=== PATIENT | male | born 1945 | race Caucasian/White ===

== ENCOUNTER 2020-03-12 10:31 | Outpatient (CLI) | payer OTHER, MEDICARE ==
[2020-03-12 10:41] LABS: BASOPHILS % (AUTO) 0.5 %; EOSINOPHILS # (AUTO) 0.2 10^3/uL (0.0-0.7); HGB - HEMOGLOBIN 14.4 g/dL (14.0-18.0); LYMPHOCYTES # (AUTO) 1.2 10^3/uL (1.5-3.5); LYMPHOCYTES % (AUTO) 15.7 %; MEAN CORPUSCULAR HGB CONC 32.9 g/dL (32.0-36.0); MEAN CORPUSCULAR VOLUME 85.2 fL (80.0-94.0); MEAN PLATELET VOLUME 8.8 fL (7.4-11.4); MONOCYTES # (AUTO) 0.7 10^3/uL (0.0-1.0); MONOCYTES % (AUTO) 8.5 %; NEUTROPHILS # (AUTO) 5.6 10^3/uL (1.5-6.6); NEUTROPHILS % (AUTO) 72.9 %; PLT - PLATELET COUNT 297 10^3/uL (130-450); RED BLOOD COUNT 5.14 10^6/uL (4.70-6.10); RED CELL DISTRIBUTION WIDTH 14.8 % (12.0-15.0); WHITE BLOOD COUNT 7.6 x10^3/uL (4.8-10.8)
== END 2020-03-12 10:32 | disposition home or self-care (01) ==
LOC: LAB 10:31
PROVIDERS: ATTEND Allergy & Immunology
DX: J45.50 Severe persistent asthma, uncomplicated (principal)
CPT/HCPCS: 36415; 82785; 85025

== ENCOUNTER 2020-03-19 13:12 | Outpatient (CLI) | payer OTHER, MEDICARE | END 2020-03-19 13:13 | disposition home or self-care (01) | LOC: RT 13:12 | PROVIDERS: ATTEND Allergy & Immunology | DX: J45.50 Severe persistent asthma, uncomplicated (principal) | CPT/HCPCS: 94060 ==

== ENCOUNTER 2021-05-29 02:31 | Outpatient (CLI) | payer MEDICARE, OTHER | END 2021-05-29 02:32 | disposition EMS.NT | LOC: EMS 02:31 | DX: R06.00 Dyspnea, unspecified (principal); F41.9 Anxiety disorder, unspecified ==

== ENCOUNTER 2021-06-24 08:00 | Outpatient (CLI) | payer MEDICARE, OTHER ==
[2021-06-24 16:14] LABS: BILIRUBIN,URINE NEGATIVE (NEGATIVE); GLUCOSE, URINE (UA) NEGATIVE (NEGATIVE); KETONES,URINE (UA) NEGATIVE (NEGATIVE); LEUKOCYTE ESTERASE, URINE NEGATIVE (NEGATIVE); NITRITE,URINE NEGATIVE (NEGATIVE); OCCULT BLOOD,URINE NEGATIVE (NEGATIVE); PH,URINE 5.5 PH (5.0-7.5); PROTEIN,URINE NEGATIVE (NEGATIVE); UROBILINOGEN,URINE 0.2 (NORMAL) E.U./dL (NORMAL)
[2021-06-24 16:17] LABS: CLARITY,URINE CLEAR (CLEAR)
== END 2021-06-24 23:59 ==
LOC: LAB.R 08:00
PROVIDERS: ATTEND Internal Medicine
DX: R30.0 Dysuria (principal); R10.9 Unspecified abdominal pain
CPT/HCPCS: 81001; 81003; 87086

== ENCOUNTER 2021-09-01 15:32 | Outpatient (CLI) | payer MEDICARE, OTHER ==
[2021-09-01 18:22] LABS: BASOPHILS # (AUTO) 0.1 10^3/uL (0.0-0.1); BASOPHILS % (AUTO) 0.6 %; EOSINOPHILS # (AUTO) 0.1 10^3/uL (0.0-0.7); EOSINOPHILS % (AUTO) 1.7 %; HCT - HEMATOCRIT 45.2 % (42.0-52.0); LYMPHOCYTES % (AUTO) 11.8 %; MEAN PLATELET VOLUME 10.5 fL (7.4-11.4); MONOCYTES # (AUTO) 0.6 10^3/uL (0.0-1.0); MONOCYTES % (AUTO) 6.7 %; NEUTROPHILS # (AUTO) 6.5 10^3/uL (1.5-6.6); NEUTROPHILS % (AUTO) 78.8 %; PLT - PLATELET COUNT 265 10^3/uL (130-450); RED BLOOD COUNT 5.38 10^6/uL (4.70-6.10); RED CELL DISTRIBUTION WIDTH 16.9 % (12.0-15.0); WHITE BLOOD COUNT 8.2 x10^3/uL (4.8-10.8)
== END 2021-09-01 15:33 | disposition home or self-care (01) ==
LOC: LAB.R 15:32
PROVIDERS: ATTEND Internal Medicine
DX: M25.50 Pain in unspecified joint (principal)
CPT/HCPCS: 84550; 85025

== ENCOUNTER 2022-04-07 23:23 | Emergency (ER) | payer OTHER, MEDICARE ==
[2022-04-08 00:10] LABS: BASOPHILS % (AUTO) 0.3 %; EOSINOPHILS # (AUTO) 0.1 10^3/uL (0.0-0.7); EOSINOPHILS % (AUTO) 0.9 %; HCT - HEMATOCRIT 38.4 % (42.0-52.0); LYMPHOCYTES # (AUTO) 1.6 10^3/uL (1.5-3.5); MEAN CORPUSCULAR HEMOGLOBIN 25.3 pg (27.0-31.0); MEAN CORPUSCULAR HGB CONC 31.3 g/dL (32.0-36.0); MEAN CORPUSCULAR VOLUME 80.8 fL (80.0-94.0); MEAN PLATELET VOLUME 9.1 fL (7.4-11.4); MONOCYTES # (AUTO) 0.7 10^3/uL (0.0-1.0); MONOCYTES % (AUTO) 10.7 %; NEUTROPHILS # (AUTO) 4.4 10^3/uL (1.5-6.6); NEUTROPHILS % (AUTO) 63.7 %; PLT - PLATELET COUNT 278 10^3/uL (130-450); RED BLOOD COUNT 4.75 10^6/uL (4.70-6.10); RED CELL DISTRIBUTION WIDTH 15.4 % (12.0-15.0); WHITE BLOOD COUNT 6.8 x10^3/uL (4.8-10.8)
[2022-04-08] MEDS: IPRATROPIUM/ALBUTEROL 3 ML NEB INH STA (00:10)
[2022-04-08 00:19] LABS: CALCIUM 9.4 mg/dL (8.5-10.3); POTASSIUM 4.5 mmol/L (3.5-5.0)
[2022-04-08] MEDS: predniSONE 20 MG TABLET PO STA (00:23)
--- NOTE | 2022-04-08 00:37 | XRAY Report ---
PROCEDURE: Chest 1 View X-Ray INDICATIONS: cough/SOA TECHNIQUE: One view of the chest was acquired. COMPARISON: None. FINDINGS: Surgical changes and devices: None. Lungs and pleura: No pleural effusions or pneumothorax. Lungs are clear. Mediastinum: Mediastinal contours appear normal. Heart size is normal. Bones and chest wall: No suspicious bony lesions. Overlying soft tissues appear unremarkable. IMPRESSION: 1. No acute cardiopulmonary disease. Reviewed by: Martín Brantley MD on 04/08/2022 12:45 AM [facility] Approved by: Martín Brantley MD on 04/08/2022 12:45 AM [facility] Station ID: [id number]
--- NOTE | 2022-04-08 00:58 | ED Physician Documentation ---
PD HPI DYSPNEA - Stated complaint Stated Complaint: SOA - Chief complaint Chief Complaint: Resp - History obtained from History obtained from: Patient - Additional information Additional information: Patient is a 76-year-old male with a history of asthma presenting for evaluation of worsening shortness of breath. Patient reports having a nonproductive cough and exacerbation of his asthma for the past 2 weeks.He has been using his albuterol inhaler regularly but is out of the nebulized albuterol. His doctor had sent a prednisone prescription a few months ago to the pharmacy which she has been taking. He reports it was a 5-day course of 2 pills and 5-day course of 1 pill.He is on day 6 of this. He is unsure of the dose.He denies known fevers. He denies chest pain. No leg pain or swelling. Review of Systems Constitutional: denies: Fever Nose: reports: Congestion Cardiac: denies: Chest pain / pressure Respiratory: reports: Dyspnea, Cough GI: denies: Abdominal Pain : denies: Dysuria Musculoskeletal: denies: Back pain Neurologic: denies: Headache PD PAST MEDICAL HISTORY - Past Medical History Past Medical History: Yes Cardiovascular: Hypertension, High cholesterol Respiratory: Asthma Endocrine/Autoimmune: Type 2 diabetes GI: GERD, Ulcers, Diverticulitis, Other Other Past Medical History: Esophageal spasm - Past Surgical History Past Surgical History: Yes General: Cholecystectomy, Colonoscopy - Present Medications Home Medications: Ambulatory Orders Medication Instructions Recorded Confirmed Albuterol Sulfate [Proair 2 puffs IH Q4HR PRN 04/07/22 04/07/22 Digihaler] Atorvastatin Calcium 40 mg PO DAILY 04/07/22 04/07/22 Beclomethasone Dipropionate [Qvar 2 puffs IH BID 04/07/22 04/07/22 Redihaler (80 mcg)] Enalapril Maleate [Vasotec] 20 mg PO BID 04/07/22 04/07/22 Lansoprazole [Prevacid] 30 mg PO DAILY 04/07/22 04/07/22 Metformin HCl [Metformin ER 500 mg PO DAILY 04/07/22 04/07/22 Osmotic] Metoprolol Succinate [Toprol Xl] 25 mg PO BID 04/07/22 04/07/22 Tamsulosin HCl [Flomax] 1 cap PO DAILY 04/07/22 04/07/22 Triamterene/Hydrochlorothiazid 1 cap PO DAILY 04/07/22 04/07/22 [Triamterene-Hctz 37.5-25 mg Cp] Albuterol 2.5 mg INH Q4H PRN #30 ml 04/08/22 predniSONE [Deltasone] 20 mg PO DAILY 04/08/22 04/08/22 predniSONE [Deltasone] 20 mg PO [id number] #21 tab 04/08/22 - Allergies Allergies/Adverse Reactions: Allergies Allergy/AdvReac Type Severity Reaction Status Date / Time No Known Drug Allergies Allergy Verified 04/07/22 23:41 - Social History Does the pt smoke?: No Smoking Status: Never smoker Does the pt drink ETOH?: No Does the pt have substance abuse?: No - Immunizations Immunizations are current?: Yes - POLST Patient has POLST: No PD ED PE NORMAL - General General: Alert and oriented X 3, No acute distress, Well developed/nourished - HEENT HEENT: Atraumatic, Moist mucous membranes - Neck Neck: Supple, no meningeal sign - Cardiac Cardiac: RRR, Strong equal pulses - Respiratory Respiratory: No respiratory distress, Other (Diffuse wheezing, no rhonchi or rales) - Abdomen Abdomen: Soft, Non tender - Derm Derm: Warm and dry - Extremities Extremities: No edema, No calf tenderness / cord - Neuro Neuro: Normal speech Results - Vitals Vitals: Vital Signs - 24 hr 04/07/22 04/07/22 04/08/22 23:25 23:56 00:10 Temperature 36.7 C Heart Rate 84 94 94 Respiratory 25 H 24 18 Rate Blood Pressure 175/100 H 175/100 H O2 Saturation 97 96 04/08/22 01:02 Temperature 37.3 C Heart Rate 94 Respiratory 18 Rate Blood Pressure 133/76 H O2 Saturation 98 Oxygen O2 Source Room air - EKG (time done) 1210 Rate: Rate (enter#) (94) Rhythm: NSR Ischemia: No: ST elevation c/w ischemia, ST depression Compare to prior EKG: Old EKG unavailable - Labs Labs: Laboratory Tests 04/08/22 04/08/22 04/08/22 00:03 00:03 00:03 WBC 6.8 RBC 4.75 Hgb 12.0 L Hct 38.4 L MCV 80.8 MCH 25.3 L MCHC 31.3 L RDW 15.4 H Plt Count 278 MPV 9.1 Neut # (Auto) 4.4 Lymph # (Auto) 1.6 [place] # (Auto) 0.7 Eos # (Auto) 0.1 Baso # (Auto) 0.0 Absolute Nucleated RBC 0.00 Nucleated RBC % 0.0 Sodium 139 Potassium 4.5 Chloride 103 Carbon Dioxide 24 Anion Gap 12.0 BUN 24 H Creatinine 1.0 Estimated GFR (MDRD) 72 L Glucose 139 H Calcium 9.4 B-Natriuretic Peptide 44 Nasal Adenovirus (PCR) Nasal B. parapertussis DNA (PCR) Nasal Coronavir 229E PCR Nasal Coronavir HKU1 PCR Nasal Coronavir NL63 PCR Nasal Coronavir OC43 PCR Nasal Enterovir/Rhinovir PCR Nasal Influenza A H3 PCR Nasal Influenza B PCR Nasal Parainfluen 1 PCR Nasal Parainfluen 2 PCR Nasal Parainfluen 3 PCR Nasal Parainfluen 4 PCR Nasal RSV (PCR) Nasal B.pertussis DNA PCR Nasal C.pneumoniae (PCR) Thaddeus Human Metapneumo PCR Nasal M.pneumoniae (PCR) Nasal SARS-CoV-2 (PCR) 04/08/22 00:04 WBC RBC Hgb Hct MCV MCH MCHC RDW Plt Count MPV Neut # (Auto) Lymph # (Auto) [place] # (Auto) Eos # (Auto) Baso # (Auto) Absolute Nucleated RBC Nucleated RBC % Sodium Potassium Chloride Carbon Dioxide Anion Gap BUN Creatinine Estimated GFR (MDRD) Glucose Calcium B-Natriuretic Peptide Nasal Adenovirus (PCR) NOT DETECTED Nasal B. parapertussis DNA (PCR) NOT DETECTED Nasal Coronavir 229E PCR NOT DETECTED Nasal Coronavir HKU1 PCR NOT DETECTED Nasal Coronavir NL63 PCR NOT DETECTED Nasal Coronavir OC43 PCR NOT DETECTED Nasal Enterovir/Rhinovir PCR NOT DETECTED Nasal Influenza A H3 PCR DETECTED A Nasal Influenza B PCR NOT DETECTED Nasal Parainfluen 1 PCR NOT DETECTED Nasal Parainfluen 2 PCR NOT DETECTED Nasal Parainfluen 3 PCR NOT DETECTED Nasal Parainfluen 4 PCR NOT DETECTED Nasal RSV (PCR) NOT DETECTED Nasal B.pertussis DNA PCR NOT DETECTED Nasal C.pneumoniae (PCR) NOT DETECTED Thaddeus Human Metapneumo PCR NOT DETECTED Nasal M.pneumoniae (PCR) NOT DETECTED Nasal SARS-CoV-2 (PCR) NOT DETECTED PD MEDICAL DECISION MAKING - ED course Complexity details: reviewed results, re-evaluated patient, d/w patient, d/w family ED course: Patient with shortness of breath and recent cough and congestion.His vital signs appear stable. He is wheezing on exam. EKG obtained given age.No chest pain is to suggest ACS. No exam findings to suggest fluid overload. His labs were reviewed. His chest x-ray appears clear. A respiratory panel is pending at time of discharge.He feels much better after 2 breathing treatments. I have started him back on a higher dose of prednisone And sent a new prescription to his pharmacy. Have also refilled his albuterol for the nebulizer. He is counseled regarding continued supportive care as well as concerning symptoms to return for.After discharge it is noted that he is influenza A positive. Given the duration of his symptoms I do not believe he is a candidate for Tamiflu. 1256 - Feeling much better after 2 nebs. Lung sounds are clear. is at the bedside. Reviewed results. Departure - Departure Disposition: Home, Self Care Clinical Impression: Asthma exacerbation Qualifiers: Asthma severity: moderate Asthma persistence: unspecified Qualified Code(s): J45.901 - Unspecified asthma with (acute) exacerbation Condition: Good Instructions: ED Bronchitis Asthmatic Prescriptions: Albuterol 2.5 mg INH Q4H PRN #30 ml PRN Reason: Wheezing predniSONE [Deltasone] 20 mg PO [id number] #21 tab Comments: Your chest x-ray does not show signs of pneumonia or fluid in your lungs. Your labs are reassuring. I have sent prescriptions for prednisone and nebulized albuterol to [facility] in [place].Please use the albuterol (in the nebulizer or inhaler) every 4 hours as needed for wheezing or shortness of breath. Please return to the ER with any worsening symptoms. Otherwise please contact your doctor for close follow-up. Your respiratory panel is pending. This will check for COVID, influenza, RSV and a number of other common cold viruses. We will notify you if it is positive for COVID. Otherwise you can check the patient portal for your results. Please continue with acetaminophen or ibuprofen as needed for fevers and body aches, plenty of fluids/hydration and rest. Return to the ER with any worsening symptoms such as difficulty breathing or vomiting. Discharge Date/Time: 04/08/22 01:08
[2022-04-08 01:02] LABS: B. PARAPERTUSSIS- RESP PCR PAN NOT DETECTED; B. PERTUSSIS- RESP PCR PANEL NOT DETECTED; C. PNEUMONIAE- RESP PCR PANEL NOT DETECTED; CORONAVIRUS 229E-RESP PCR NOT DETECTED; CORONAVIRUS HKU1-RESP PCR NOT DETECTED; CORONAVIRUS NL63-RESP PCR NOT DETECTED; CORONAVIRUS OC43-RESP PCR NOT DETECTED; HUMAN METAPNEUMOVIRUS NOT DETECTED; INFLUENZA A H3- RESP PCR PANEL DETECTED; INFLUENZA B - RESP PCR PANEL NOT DETECTED; M. PNEUMONIAE- RESP PCR PANEL NOT DETECTED; PARAINFLUENZA VIRUS 1 NOT DETECTED; PARAINFLUENZA VIRUS 2 NOT DETECTED; PARAINFLUENZA VIRUS 3 NOT DETECTED; PARAINFLUENZA VIRUS 4 NOT DETECTED; RHINOVIRUS/ENTEROVIRUS NOT DETECTED; RSV- RESP PCR PANEL NOT DETECTED; SARS-CoV-2 -RESP PCR PANEL NOT DETECTED
[2022-04-08 01:03] VITALS: BP 133/76
== END 2022-04-08 01:08 | disposition home or self-care (01) ==
LOC: ED 23:23
DX: J45.901 Unspecified asthma with (acute) exacerbation (principal); E11.9 Type 2 diabetes mellitus without complications; Z79.84 Long term (current) use of oral hypoglycemic drugs; I10 Essential (primary) hypertension; Z20.822 Contact with and (suspected) exposure to COVID-19
CPT/HCPCS: 36415; 71045; 80048; 83880; 85025; 87633; 93005; 94640; 99283; 99284; J7512

== ENCOUNTER 2022-04-18 08:00 | Outpatient (CLI) | payer OTHER, MEDICARE ==
[2022-04-18 16:18] LABS: BASOPHILS % (AUTO) 0.4 %; EOSINOPHILS % (AUTO) 0.1 %; HCT - HEMATOCRIT 38.7 % (42.0-52.0); HGB - HEMOGLOBIN 12.2 g/dL (14.0-18.0); LYMPHOCYTES # (AUTO) 0.7 10^3/uL (1.5-3.5); LYMPHOCYTES % (AUTO) 7.5 %; MEAN CORPUSCULAR HEMOGLOBIN 25.5 pg (27.0-31.0); MEAN CORPUSCULAR HGB CONC 31.5 g/dL (32.0-36.0); MEAN CORPUSCULAR VOLUME 80.8 fL (80.0-94.0); MEAN PLATELET VOLUME 10.2 fL (7.4-11.4); MONOCYTES # (AUTO) 0.3 10^3/uL (0.0-1.0); MONOCYTES % (AUTO) 2.9 %; NEUTROPHILS # (AUTO) 8.6 10^3/uL (1.5-6.6); NEUTROPHILS % (AUTO) 88.7 %; PLT - PLATELET COUNT 319 10^3/uL (130-450); RED BLOOD COUNT 4.79 10^6/uL (4.70-6.10); RED CELL DISTRIBUTION WIDTH 15.9 % (12.0-15.0); WHITE BLOOD COUNT 9.7 x10^3/uL (4.8-10.8)
[2022-04-18 16:35] LABS: ALBUMIN 3.6 g/dL (3.2-5.5); ALBUMIN/GLOBULIN RATIO 1.1 (1.0-2.2); ALKALINE PHOSPHATASE 82 IU/L (42-121); ALT ALANINE AMINOTRANSFERASE 20 IU/L (10-60); AST ASPARTATE AMINOTRANSFERASE 23 IU/L (10-42); BILIRUBIN,TOTAL 1.6 mg/dL (0.2-1.0); BUN - BLOOD UREA NITROGEN 19 mg/dL (6-20); CALCIUM 9.5 mg/dL (8.5-10.3); CARBON DIOXIDE - CO2 25 mmol/L (21-32); CHLORIDE 100 mmol/L (101-111); CHOL/HDL RATIO 2.8 (<5.0); CHOLESTEROL 131 mg/dL; CK- CREATINE KINASE 80 IU/L (22-269); GFR - MDRD 72 (>89); GLUCOSE 205 mg/dL (70-100); HDL CHOLESTEROL 46 mg/dL; LDL CHOLESTEROL,CALCULATED 62 mg/dL; LDL/HDL RATIO 1.3 (<3.6); POTASSIUM 4.7 mmol/L (3.5-5.0); SODIUM 135 mmol/L (135-145); TRIGLYCERIDES 115 mg/dL; VLDL CHOLESTEROL 23 mg/dL
[2022-04-18 16:40] LABS: MICROALBUMIN,URINE 0.9 mg/dL (0-300.0)
[2022-04-18 17:01] LABS: THYROID STIMULATING HORMONE 1.71 uIU/mL (0.34-5.60)
[2022-04-18 19:05] LABS: ESTIMATED AVERAGE GLUCOSE 186 mg/dL (70-100); HEMOGLOBIN A1c% 8.1 % (4.27-6.07)
== END 2022-04-18 23:59 | disposition home or self-care (01) ==
LOC: LAB.R 08:00
PROVIDERS: ATTEND Internal Medicine
DX: Z00.00 Encounter for general adult medical examination without abnormal findings (principal); N40.0 Benign prostatic hyperplasia without lower urinary tract symptoms; E11.9 Type 2 diabetes mellitus without complications; M10.9 Gout, unspecified; E78.5 Hyperlipidemia, unspecified; I10 Essential (primary) hypertension; J45.909 Unspecified asthma, uncomplicated; R79.89 Other specified abnormal findings of blood chemistry; Z79.899 Other long term (current) drug therapy; R25.1 Tremor, unspecified; J06.9 Acute upper respiratory infection, unspecified
CPT/HCPCS: 36415; 80053; 80061; 82043; 82550; 82570; 82607; 83036; 83721; 84443; 85025

== ENCOUNTER 2023-10-24 04:05 | Outpatient (CLI) | payer OTHER | END 2023-10-24 23:59 | disposition critical access hospital (66) | LOC: EMS 04:05 | DX: R07.89 Other chest pain (principal); I10 Essential (primary) hypertension; R11.0 Nausea; R06.02 Shortness of breath | CPT/HCPCS: A0425; A0427 ==

== ENCOUNTER 2023-10-24 04:36 | Emergency (ER) | payer MEDICARE, OTHER ==
[2023-10-24 05:02] LABS: BASOPHILS # (AUTO) 0.1 10^3/uL (0.0-0.1); BASOPHILS % (AUTO) 0.9 %; EOSINOPHILS # (AUTO) 0.2 10^3/uL (0.0-0.7); EOSINOPHILS % (AUTO) 3.5 %; HCT - HEMATOCRIT 34.6 % (42.0-52.0); HGB - HEMOGLOBIN 10.8 g/dL (14.0-18.0); LYMPHOCYTES % (AUTO) 18.1 %; MEAN CORPUSCULAR HEMOGLOBIN 24.4 pg (27.0-31.0); MEAN CORPUSCULAR HGB CONC 31.2 g/dL (32.0-36.0); MEAN CORPUSCULAR VOLUME 78.1 fL (80.0-94.0); MEAN PLATELET VOLUME 9.2 fL (7.4-11.4); MONOCYTES # (AUTO) 0.6 10^3/uL (0.0-1.0); MONOCYTES % (AUTO) 10.3 %; NEUTROPHILS # (AUTO) 3.9 10^3/uL (1.5-6.6); PLT - PLATELET COUNT 259 10^3/uL (130-450); RED BLOOD COUNT 4.43 10^6/uL (4.70-6.10); RED CELL DISTRIBUTION WIDTH 17.2 % (12.0-15.0); WHITE BLOOD COUNT 5.7 x10^3/uL (4.8-10.8)
--- NOTE | 2023-10-24 05:02 | ED Physician Documentation ---
PD HPI CHEST PAIN - Stated complaint Stated Complaint: CHEST PX - Chief complaint Chief Complaint: Cardiac - History obtained from History obtained from: Patient - Additional information Additional information: HPI from patient. Patient complains of waking up at approximately 1 AM this morning due to shortness of breath which she says is consistent with "my asthma attack" (per patient). Patient says he frequently has asthma exacerbations. He does not use oxygen at home. He has both nebulizers and MDI; he did not use his neb tonight because he had just used his MDI and is under the impression that he should use one or the other but not both. Continues to have shortness of breath and wheezing. He subsequently developed pain across his anterior chest but predominantly left-sided. This is a new symptom for him. The pain is mild, and he rates it a 2 on a 1-10 scale. He says the pain is episodic; it has gone away and then reoccurred a few times since onset. He has not noticed any inciting, exacerbating, nor ameliorating factors. He denies fever. He has had a wet cough but nonproductive. Denies leg swelling. There is no pleuritic nor exertional component to his chest pain. PD PAST MEDICAL HISTORY - Past Medical History Cardiovascular: Hypertension, High cholesterol Respiratory: Asthma Endocrine/Autoimmune: Type 2 diabetes GI: GERD, Ulcers, Diverticulitis, Other - Past Surgical History Past Surgical History: Yes General: Cholecystectomy, Colonoscopy - Present Medications Home Medications: Ambulatory Orders Medication Instructions Recorded Confirmed Albuterol Sulfate [Proair 2 puffs IH Q4HR PRN 04/07/22 04/07/22 Digihaler] Atorvastatin Calcium 40 mg PO DAILY 04/07/22 04/07/22 Beclomethasone Dipropionate [Qvar 2 puffs IH BID 04/07/22 04/07/22 Redihaler (80 mcg)] Enalapril Maleate [Vasotec] 20 mg PO BID 04/07/22 04/07/22 Lansoprazole [Prevacid] 30 mg PO DAILY 04/07/22 04/07/22 Metformin HCl [Metformin ER 500 mg PO DAILY 04/07/22 04/07/22 Osmotic] Metoprolol Succinate [Toprol Xl] 25 mg PO BID 04/07/22 04/07/22 Tamsulosin HCl [Flomax] 1 cap PO DAILY 04/07/22 04/07/22 Triamterene/Hydrochlorothiazid 1 cap PO DAILY 04/07/22 04/07/22 [Triamterene-Hctz 37.5-25 mg Cp] Albuterol 2.5 mg INH Q4H PRN #30 ml 04/08/22 predniSONE [Deltasone] 20 mg PO DAILY 04/08/22 04/08/22 predniSONE [Deltasone] 20 mg PO [id number] #21 tab 04/08/22 predniSONE [Deltasone] 40 mg PO DAILY 4 Days #8 tablet 10/24/23 - Allergies Allergies/Adverse Reactions: Allergies Allergy/AdvReac Type Severity Reaction Status Date / Time No Known Drug Allergies Allergy Verified 10/24/23 04:58 - Social History Does the pt smoke?: No Smoking Status: Never smoker Does the pt drink ETOH?: No Does the pt have substance abuse?: No - Immunizations Immunizations are current?: Yes - POLST Patient has POLST: No PD ED PE NORMAL - Vitals Vital signs reviewed: Yes - General General: Alert and oriented X 3, No acute distress, Well developed/nourished - Neck Neck: Supple, no meningeal sign - Cardiac Cardiac: RRR - Respiratory Respiratory: No respiratory distress - Abdomen Abdomen: Soft, Non tender - Extremities Extremities: No edema PD ED PE EXPANDED - Cardiac Cardiac: Murmur Present (2/6 MARY greatest at left 2nd ICS) - Respiratory Respiratory: Wheezing (trace end-expiratory wheezing bilaterally, adequate air movement) Results - Vitals Vitals: Vital Signs - 24 hr 10/24/23 10/24/23 10/24/23 04:42 05:40 06:30 Temperature 36.9 C Heart Rate 61 62 74 Respiratory 18 16 16 Rate Blood Pressure 139/76 H 124/69 O2 Saturation 100 98 Oxygen O2 Source Room air - EKG (time done) No standard instances EKG releavant findings:: EKG personally interpreted by author of this note. Relevant findings are: Rate: Rate (enter#) (60) Rhythm: NSR [place]: Normal Intervals: Normal [place], LBBB (incomplete) QRS: Normal Ischemia: Normal ST segments Compare to prior EKG: Unchanged from prior EKG (no significant change vs 04/08/22) - Labs Labs: Laboratory Tests 10/24/23 10/24/23 10/24/23 04:55 04:55 05:25 WBC 5.7 RBC 4.43 L Hgb 10.8 L Hct 34.6 L MCV 78.1 L MCH 24.4 L MCHC 31.2 L RDW 17.2 H Plt Count 259 MPV 9.2 Neut # (Auto) 3.9 Lymph # (Auto) 1.0 L [place] # (Auto) 0.6 Eos # (Auto) 0.2 Baso # (Auto) 0.1 Absolute Nucleated RBC 0.00 Nucleated RBC % 0.0 Sodium 132 L Potassium 4.4 Chloride 99 L Carbon Dioxide 27 Anion Gap 6.0 BUN 16 Creatinine 0.9 Estimated GFR (MDRD) 81 L Glucose 115 H Calcium 9.5 Total Bilirubin 1.2 H AST 20 ALT 10 Alkaline Phosphatase 62 Troponin I High Sens 5.4 Total Protein 6.3 L Albumin 4.0 Globulin 2.3 Albumin/Globulin Ratio 1.7 Lipase 27 Nasal Adenovirus (PCR) NOT DETECTED Nasal B. parapertussis DNA (PCR) NOT DETECTED Nasal Coronavir 229E PCR NOT DETECTED Nasal Coronavir HKU1 PCR NOT DETECTED Nasal Coronavir NL63 PCR NOT DETECTED Nasal Coronavir OC43 PCR NOT DETECTED Nasal Enterovir/Rhinovir PCR NOT DETECTED Nasal Influenza B PCR NOT DETECTED Nasal Influenza A PCR NOT DETECTED Nasal Parainfluen 1 PCR NOT DETECTED Nasal Parainfluen 2 PCR NOT DETECTED Nasal Parainfluen 3 PCR NOT DETECTED Nasal Parainfluen 4 PCR NOT DETECTED Nasal RSV (PCR) NOT DETECTED Nasal B.pertussis DNA PCR NOT DETECTED Nasal C.pneumoniae (PCR) NOT DETECTED Thaddeus Human Metapneumo PCR NOT DETECTED Nasal M.pneumoniae (PCR) NOT DETECTED Nasal SARS-CoV-2 (PCR) NOT DETECTED - Rads (name of study) chest xray Relevant Findings:: Prelim report reviewed, See rad report PD Medical Decision Making - ED course Complexity details: reviewed results, re-evaluated patient, considered differential, d/w patient ED course: Patient is given DuoNeb and 40 mg prednisone p.o. On reevaluation, he reports feeling much improved with these measures. Patient tells me that he typically has good results with oral steroids when he has asthma exacerbations. No concerning findings on EKG. No concerning findings on CBC (red blood cell count mildly below normal with hemoglobin 10.8; while this is below his previous results, it is not drastically so and this can be followed up in the outpatient setting). Normal high-sensitivity troponin (5.4). Mild hyponatremia noted (132). Unremarkable chest x-ray; specifically, no evidence of pneumothorax, pneumonia. Results reviewed with patient. He says he feels well and is comfortable with DC home. I am providing him a prescription for a short course of daily prednisone. Return precautions are discussed. Departure - Departure Disposition: Home, Self Care Clinical Impression: Asthma exacerbation Condition: Good Instructions: ED Reactive Airway Disease, ED Chest Pain Atypical Unkn Cause Follow-Up: Belem Duvall MD [Primary Care Provider] - Prescriptions: predniSONE [Deltasone] 40 mg PO DAILY 4 Days #8 tablet Comments: There were no concerning or diagnostic findings on tonight's test. Your EKG had no concerning findings, and a cardiac enzyme blood test was within normal range. Your sodium was very slightly below normal range, as was your hemoglobin (red blood cell level); neither of these findings is nearly to an extent that would cause symptoms. You should mention the low sodium (132) and hemoglobin (10.8) to your primary care provider when you next meet with them, as they might want to recheck these levels in the next few weeks. The chest x-ray had no abnormalities including no evidence of pneumonia. I have electronically submitted a prescription for a 4-day course of oral steroi d (prednisone) to the [facility] pharmacy in [place]. Discharge Date/Time: 10/24/23 06:49
[2023-10-24 05:19] LABS: ALBUMIN/GLOBULIN RATIO 1.7 (1.0-2.2); BILIRUBIN,TOTAL 1.2 mg/dL (0.2-1.0); CALCIUM 9.5 mg/dL (8.5-10.3); CREATININE 0.9 mg/dL (0.6-1.3); POTASSIUM 4.4 mmol/L (3.5-4.5); TOTAL PROTEIN 6.3 g/dL (6.4-8.9)
[2023-10-24 05:21] LABS: TROPONIN I HIGH SENSITIVITY 5.4 ng/L (2.3-19.7)
[2023-10-24] MEDS: predniSONE 20 MG TABLET PO STA (05:28)
[2023-10-24] MEDS: IPRATROPIUM/ALBUTEROL 3 ML NEB INH STA (05:40)
[2023-10-24 06:29] LABS: CORONAVIRUS 229E-RESP PCR NOT DETECTED; CORONAVIRUS HKU1-RESP PCR NOT DETECTED; CORONAVIRUS NL63-RESP PCR NOT DETECTED; CORONAVIRUS OC43-RESP PCR NOT DETECTED; HUMAN METAPNEUMOVIRUS NOT DETECTED; INFLUENZA A- RESP PCR PANEL NOT DETECTED; RHINOVIRUS/ENTEROVIRUS NOT DETECTED; SARS-CoV-2 -RESP PCR PANEL NOT DETECTED
[2023-10-24 06:30] LABS: B. PARAPERTUSSIS- RESP PCR PAN NOT DETECTED; B. PERTUSSIS- RESP PCR PANEL NOT DETECTED; C. PNEUMONIAE- RESP PCR PANEL NOT DETECTED; INFLUENZA B - RESP PCR PANEL NOT DETECTED; M. PNEUMONIAE- RESP PCR PANEL NOT DETECTED; PARAINFLUENZA VIRUS 1 NOT DETECTED; PARAINFLUENZA VIRUS 2 NOT DETECTED; PARAINFLUENZA VIRUS 3 NOT DETECTED; PARAINFLUENZA VIRUS 4 NOT DETECTED; RSV- RESP PCR PANEL NOT DETECTED
[2023-10-24 06:56] VITALS: BP 124/69; O2SAT 98
--- NOTE | 2023-10-24 08:03 | XRAY Report ---
PROCEDURE: Chest 1V INDICATIONS: chest pain TECHNIQUE: One view of the chest was acquired. COMPARISON: 04/07/2022 FINDINGS: Surgical changes and devices: None. Lungs and pleura: No consolidation or pleural effusion Mediastinum: Normal heart size Bones and chest wall: Degenerative changes IMPRESSION: Single view radiograph without acute abnormality. Agree with preliminary report. Reviewed by: Hussein Owusu MD on 10/24/2023 8:02 AM PDT Approved by: Hussein Owusu MD on 10/24/2023 8:02 AM PDT Station ID: [id number]
== END 2023-10-24 06:49 | disposition home or self-care (01) ==
LOC: EDUNIT# → ED 04:36
DX: J45.901 Unspecified asthma with (acute) exacerbation (principal); I10 Essential (primary) hypertension; E78.00 Pure hypercholesterolemia, unspecified; E11.9 Type 2 diabetes mellitus without complications; Z79.899 Other long term (current) drug therapy; Z79.84 Long term (current) use of oral hypoglycemic drugs
CPT/HCPCS: 36415; 71045; 80053; 83690; 84484; 85025; 87633; 93005; 94640; 99284; J7512

== ENCOUNTER 2023-11-03 12:02 | Outpatient (CLI) | payer OTHER | END 2023-11-03 23:59 | disposition critical access hospital (66) | LOC: EMS 12:02 | DX: S01.21XA Laceration without foreign body of nose, initial encounter (principal); W18.39XA Other fall on same level, initial encounter; Y93.01 Activity, walking, marching and hiking; Y92.008 Other place in unspecified non-institutional (private) residence as the place of occurrence of the external cause | CPT/HCPCS: A0425; A0429 ==

== ENCOUNTER 2023-11-03 12:42 | Emergency (ER) | payer OTHER ==
[2023-11-03] MEDS: BACITRACIN ZINC OINT 1 PACKET TOP STA (13:25)
--- NOTE | 2023-11-03 13:26 | ED Physician Documentation ---
History of Present Illness - Stated complaint Stated Complaint: GLF - Chief complaint Chief Complaint: General - History obtained from History obtained from: Patient, EMS - Additonal information Additional information: The patient comes to the emergency department chief complaint of ground-level fall. He states he was walking and he tripped and fell forward, landing face first. He did catch himself a little bit with both of his forearms. The patient denies loss of consciousness. He has sustained wounds to his face, mainly in the midline. He does not think his teeth are injured. No other com plaints at this time. PD PAST MEDICAL HISTORY - Past Medical History Cardiovascular: Hypertension, High cholesterol Respiratory: Asthma Endocrine/Autoimmune: Type 2 diabetes GI: GERD, Ulcers, Diverticulitis, Other - Past Surgical History Past Surgical History: Yes General: Cholecystectomy, Colonoscopy - Present Medications Home Medications: Ambulatory Orders Medication Instructions Recorded Confirmed Albuterol Sulfate [Proair 2 puffs IH Q4HR PRN 04/07/22 04/07/22 Digihaler] Atorvastatin Calcium 40 mg PO DAILY 04/07/22 04/07/22 Beclomethasone Dipropionate [Qvar 2 puffs IH BID 04/07/22 04/07/22 Redihaler (80 mcg)] Enalapril Maleate [Vasotec] 20 mg PO BID 04/07/22 04/07/22 Lansoprazole [Prevacid] 30 mg PO DAILY 04/07/22 04/07/22 Metformin HCl [Metformin ER 500 mg PO DAILY 04/07/22 04/07/22 Osmotic] Metoprolol Succinate [Toprol Xl] 25 mg PO BID 04/07/22 04/07/22 Tamsulosin HCl [Flomax] 1 cap PO DAILY 04/07/22 04/07/22 Triamterene/Hydrochlorothiazid 1 cap PO DAILY 04/07/22 04/07/22 [Triamterene-Hctz 37.5-25 mg Cp] Albuterol 2.5 mg INH Q4H PRN #30 ml 04/08/22 predniSONE [Deltasone] 20 mg PO DAILY 04/08/22 04/08/22 predniSONE [Deltasone] 20 mg PO [id number] #21 tab 04/08/22 predniSONE [Deltasone] 40 mg PO DAILY 4 Days #8 tablet 10/24/23 HYDROcod/ACETAM 5/325 [[place] 5/325] 1 - 2 tablet PO Q6H PRN #14 tablet 11/03/23 cephALEXin [Keflex] 500 mg PO Q6H #28 cap 11/03/23 - Allergies Allergies/Adverse Reactions: Allergies Allergy/AdvReac Type Severity Reaction Status Date / Time No Known Drug Allergies Allergy Verified 11/03/23 12:58 - Social History Does the pt smoke?: No Smoking Status: Never smoker Does the pt drink ETOH?: No Does the pt have substance abuse?: No - Immunizations Immunizations are current?: Yes - POLST Patient has POLST: No PD ED PE NORMAL - Vitals Vital signs reviewed: Yes - General General: Alert and oriented X 3, No acute distress, Well developed/nourished - HEENT HEENT: PERRL, EOMI, Moist mucous membranes, Other (Multiple abrasions with deep abrasion over nasal tip, extending to inferior aspect of nose for septum and to the superior upper lip at the junction with the nose. No nasal deformity. Abrasions over the bridge of the nose as well. Bleeding controlled.) - Neck Neck: Supple, no meningeal sign, No bony TTP - Cardiac Cardiac: RRR, No murmur - Respiratory Respiratory: No respiratory distress, Clear bilaterally - Abdomen Abdomen: Soft, Non tender, Non distended - Derm Derm: Warm and dry, Other (Facial abrasions as noted above.) - Extremities Extremities: No deformity, Normal ROM s pain, No edema - Neuro Neuro: Other (Alert, grossly oriented, grossly intact.) - Psych Psych: Normal mood, Normal affect Results - Vitals Vitals: Oxygen O2 Source Room air - Rads (name of study) CT head Relevant Findings:: Final report received, See rad report (No acute findings) CT face Relevant Findings:: Final report received, See rad report (Comminuted nasal bone fracture.) PD Medical Decision Making - ED course Complexity details: reviewed results, re-evaluated patient, considered differential, d/w patient ED course: Patient's wounds were cleaned and I did not find any suturable lacerations. He was sent for CT scans of the head and face. The patient was found to have a nasal bone fracture on his maxillofacial CT, with associated soft tissue injury. His head CT showed no intracranial hemorrhage or fracture of the skull bones. I discussed the findings with the patient and his . We will place him on antibiotics, due to the wounds overlying the fracture. We have discussed wound care at home, the need for follow-up with ENT if he wishes to have cosmetic evaluation once the swelling is down. We have discussed the usual indications for return. Departure - Departure Disposition: 01 Home, Self Care Clinical Impression: Fall from ground level Nasal bone fracture Qualifiers: Encounter type: initial encounter Fracture type: open Qualified Code(s): S02.2XXB - Fracture of nasal bones, initial encounter for open fracture Condition: Stable Instructions: ED Abrasion, ED Fx Nasal Conf W X Ray Follow-Up: Abram Haley MD [Physician No Access] - Prescriptions: cephALEXin [Keflex] 500 mg PO Q6H #28 cap HYDROcod/ACETAM 5/325 [[place] 5/325] 1 - 2 tablet PO Q6H PRN #14 tablet PRN Reason: Pain Comments: Your CT scan shows that you have broken your nasal bone in several pieces. This is the portion of your nose that is hard up by the bridge, and does not move. You have also scraped your nose that quite deeply over both the bridge and the tip going to the connection with the lip. None of these wounds are able to be stitched, unfortunately, and will just have to heal on their own. Because your wounds are open right over the bone, we will go ahead and do a course of antibiotics for you. You have been given your first dose of antibiotics here in the emergency department and a prescription for the same, as well as pain medication, has been electronically transmitted to the [facility] pharmacy in [place], your pharmacy of choice on record. You should follow-up with the ENT specialist if you wish to have any cosmetic work done to your nose, once you have healed up. Contact information has been provided for this. Forms: PCP List Discharge Date/Time: 11/03/23 16:13
--- NOTE | 2023-11-03 15:15 | CT Report ---
PROCEDURE: Head WO INDICATIONS: fall/head inj TECHNIQUE: Noncontrast 4.5 mm thick angled axial sections acquired from the foramen magnum to the vertex. For r adiation dose reduction, the following was used: automated exposure control, adjustment of mA and/or kV according to patient size. COMPARISON: CT maxillofacial areas from the same date. FINDINGS: Image quality: Excellent. CSF spaces: Basal cisterns are patent. No extra-axial fluid collections. Ventricles are normal in size and shape. Brain: No midline shift. No intracranial masses or hemorrhage. Villalba-white matter interface is norm al. Intracranial carotid calcifications. Age-related volume loss and small vessel ischemic change. Skull and face: Markedly comminuted nasal bone fracture. Calvarium and visualized facial bones are i ntact, without suspicious lesions. Sinuses: Small left maxillary sinus air-fluid level. Other paranasal sinuses and mastoids are clear. IMPRESSION: 1. Markedly comminuted nasal bone fracture. 2. Acute left maxillary sinusitis. 3. No acute intracranial pathology. Reviewed by: Yasmany Valenzuela MD on 11/03/2023 3:13 PM PDT Approved by: Yasmany Valenzuela MD on 11/03/2023 3:13 PM PDT Station ID: [id number]
--- NOTE | 2023-11-03 15:17 | CT Report ---
PROCEDURE: Maxillofacial WO INDICATIONS: fall/facial inj TECHNIQUE: Noncontrast 1.5 mm thick axial images acquired from the mandible through the frontal sinuses, with co jose and sagittal reformatting. For radiation dose reduction, the following was used: automated ex posure control, adjustment of mA and/or kV according to patient size. COMPARISON: None. FINDINGS: Image quality: Excellent. Bones and teeth: Orbital farr are intact. Sinus farr show no fracture or deformity. Markedly comm inuted nasal bone fracture. Probable nasal septal fracture with severe rightward nasal septal deviati on. Visualized portions of the mandible demonstrate no fractures or subluxation. Zygomatic arches ar e intact. Pterygoid plates are intact. Visualized portions of the skull base and auditory canals ar e intact. Sinuses: Small left maxillary sinus air-fluid level. Paranasal sinuses are otherwise aerated, withou t fluid levels, mucosal thickening, or mucoceles. Mastoid air cells are aerated. Soft tissues: No edema, masses, or fluid collections. No enlarged lymph nodes. No soft tissue lace rations or debris. Vascular: Visualized vascular structures appear normal in the absence of contrast. Bony vascular fo ramina and canals are intact. IMPRESSION: 1. Markedly comminuted nasal bone fracture. 2. Probable nasal septal fracture. 3. Severe rightward nasal septal deviation. 4. Small left maxillary sinus air-fluid level without nasal sinus fracture noted. Reviewed by: Yasmany Valenzuela MD on 11/03/2023 3:16 PM PDT Approved by: Yasmany Valenzuela MD on 11/03/2023 3:16 PM PDT Station ID: [id number]
[2023-11-03] MEDS: cephALEXin 250 MG CAPSULE PO STA (15:58)
[2023-11-03 16:03] VITALS: BP 148/83; O2SAT 97
== END 2023-11-03 16:13 | disposition home or self-care (01) ==
LOC: EDUNIT# → ED 12:42
DX: S02.2XXB Fracture of nasal bones, initial encounter for open fracture (principal); W01.0XXA Fall on same level from slipping, tripping and stumbling without subsequent striking against object, initial encounter; I10 Essential (primary) hypertension; E11.9 Type 2 diabetes mellitus without complications
CPT/HCPCS: 70450; 70486; 99284; A9270

== ENCOUNTER 2023-11-05 23:58 | Outpatient (CLI) | payer OTHER | END 2023-11-05 23:59 | disposition critical access hospital (66) | LOC: EMS 23:58 | DX: R06.02 Shortness of breath (principal); R25.8 Other abnormal involuntary movements; R00.0 Tachycardia, unspecified | CPT/HCPCS: A0425; A0427 ==

== ENCOUNTER 2023-11-06 00:30 | Emergency (ER) | payer OTHER ==
[2023-11-06] MEDS: SODIUM CHLORIDE 0.9% 1,000 ML IV STA (01:06)
[2023-11-06] MEDS: ACETAMINOPHEN 325 MG TABLET PO STA (01:06)
[2023-11-06 01:09] LABS: BILIRUBIN,URINE NEGATIVE (NEGATIVE); GLUCOSE, URINE (UA) NEGATIVE (NEGATIVE); KETONES,URINE (UA) NEGATIVE (NEGATIVE); LEUKOCYTE ESTERASE, URINE NEGATIVE (NEGATIVE); NITRITE,URINE NEGATIVE (NEGATIVE); OCCULT BLOOD,URINE NEGATIVE (NEGATIVE); PH,URINE 5.5 PH (5.0-7.5); PROTEIN,URINE NEGATIVE (NEGATIVE); UROBILINOGEN,URINE 1 (NORMAL) E.U./dL (NORMAL)
[2023-11-06 01:14] LABS: CLARITY,URINE CLEAR (CLEAR)
--- NOTE | 2023-11-06 01:14 | XRAY Report ---
PROCEDURE: Chest 1V INDICATIONS: cough/fever TECHNIQUE: One view of the chest was acquired. COMPARISON: 10/24/2023. FINDINGS: Surgical changes and devices: None. Lungs and pleura: No pleural effusions or pneumothorax. There is interval development of ill-defined airspace opacity in right lower lung field. Mediastinum: Mediastinal contours appear normal. Heart size is normal. Bones and chest wall: No suspicious bony lesions. Overlying soft tissues appear unremarkable. IMPRESSION: Interval development of right lower lobe infiltrate. No pleural effusion or pneumothorax. Reviewed by: Brown Pichardo MD on 11/06/2023 1:13 AM PDT Approved by: Brown Pichardo MD on 11/06/2023 1:13 AM PDT Station ID: [id number]
[2023-11-06 01:23] LABS: BASOPHILS % (AUTO) 0.3 %; EOSINOPHILS # (AUTO) 0.1 10^3/uL (0.0-0.7); EOSINOPHILS % (AUTO) 0.6 %; HCT - HEMATOCRIT 38.3 % (42.0-52.0); HGB - HEMOGLOBIN 11.7 g/dL (14.0-18.0); LYMPHOCYTES # (AUTO) 0.4 10^3/uL (1.5-3.5); LYMPHOCYTES % (AUTO) 3.7 %; MEAN CORPUSCULAR HEMOGLOBIN 23.9 pg (27.0-31.0); MEAN CORPUSCULAR HGB CONC 30.5 g/dL (32.0-36.0); MEAN CORPUSCULAR VOLUME 78.2 fL (80.0-94.0); MEAN PLATELET VOLUME 9.1 fL (7.4-11.4); MONOCYTES # (AUTO) 0.4 10^3/uL (0.0-1.0); MONOCYTES % (AUTO) 3.5 %; NEUTROPHILS # (AUTO) 9.4 10^3/uL (1.5-6.6); NEUTROPHILS % (AUTO) 91.7 %; PLT - PLATELET COUNT 264 10^3/uL (130-450); RED CELL DISTRIBUTION WIDTH 17.4 % (12.0-15.0); WHITE BLOOD COUNT 10.3 x10^3/uL (4.8-10.8)
[2023-11-06] MEDS ORDERED: cefTRIAXone 1 GM VIAL ONE (01:48)
[2023-11-06] MEDS: cefTRIAXone 1 GM in SODIUM CHLORIDE 0.9% MINIBAG 100 ML IV STA (01:51)
[2023-11-06 01:53] LABS: ALBUMIN/GLOBULIN RATIO 1.5 (1.0-2.2); BILIRUBIN,TOTAL 1.6 mg/dL (0.2-1.0); CALCIUM 9.5 mg/dL (8.5-10.3); CREATININE 0.9 mg/dL (0.6-1.3); TOTAL PROTEIN 6.7 g/dL (6.4-8.9)
[2023-11-06 02:03] LABS: B. PARAPERTUSSIS- RESP PCR PAN NOT DETECTED; B. PERTUSSIS- RESP PCR PANEL NOT DETECTED; C. PNEUMONIAE- RESP PCR PANEL NOT DETECTED; CORONAVIRUS 229E-RESP PCR NOT DETECTED; CORONAVIRUS HKU1-RESP PCR NOT DETECTED; CORONAVIRUS NL63-RESP PCR NOT DETECTED; CORONAVIRUS OC43-RESP PCR NOT DETECTED; HUMAN METAPNEUMOVIRUS NOT DETECTED; INFLUENZA A- RESP PCR PANEL NOT DETECTED; INFLUENZA B - RESP PCR PANEL NOT DETECTED; M. PNEUMONIAE- RESP PCR PANEL NOT DETECTED; PARAINFLUENZA VIRUS 1 NOT DETECTED; PARAINFLUENZA VIRUS 2 NOT DETECTED; PARAINFLUENZA VIRUS 3 NOT DETECTED; PARAINFLUENZA VIRUS 4 NOT DETECTED; RHINOVIRUS/ENTEROVIRUS NOT DETECTED; RSV- RESP PCR PANEL NOT DETECTED; SARS-CoV-2 -RESP PCR PANEL NOT DETECTED
--- NOTE | 2023-11-06 02:19 | ED Physician Documentation ---
History of Present Illness - Stated complaint Stated Complaint: SOA - Chief complaint Chief Complaint: Resp - History obtained from History obtained from: Patient - Additonal information Additional information: Patient is a 77-year-old male with a history of asthma and Parkinson's presenting for evaluation of feeling short of air, shaky and feverish starting this evening. Patient was seen 2 days ago after a mechanical fall and head injury and found to have a nasal bone fracture. Due to abrasions over the areas of the fracture he was started on a course of cephalexin. He states he has been coughing which she usually does because of his asthma but it has recently been worse. He has not taken anything for fever today. He feels more weak and shaky than usual.No abdominal pain, vomiting or diarrhea or dysuria.EMS noted that he had diminished breath sounds and gave him a neb treatment. Review of Systems Constitutional: reports: Fever Cardiac: denies: Chest pain / pressure Respiratory: reports: Dyspnea, Cough GI: denies: Abdominal Pain, Vomiting : denies: Dysuria PD PAST MEDICAL HISTORY - Past Medical History Past Medical History: Yes Cardiovascular: Hypertension, High cholesterol Respiratory: Asthma, Pneumonia Neuro: Parkinson's Endocrine/Autoimmune: Type 2 diabetes GI: GERD, Ulcers, Diverticulitis, Other : Benign prostate hypertrophy - Past Surgical History Past Surgical History: Yes General: Cholecystectomy, Colonoscopy - Present Medications Home Medications: Ambulatory Orders Medication Instructions Recorded Confirmed Albuterol Sulfate [Proair 2 puffs IH Q4HR PRN 04/07/22 11/06/23 Digihaler] Atorvastatin Calcium 40 mg PO QPM 04/07/22 11/06/23 Enalapril Maleate [Vasotec] 20 mg PO BID 04/07/22 11/06/23 Metformin HCl [Metformin ER 1,000 mg PO BID 04/07/22 11/06/23 Osmotic] Metoprolol Succinate [Toprol Xl] 25 mg PO BID 04/07/22 11/06/23 Tamsulosin HCl [Flomax] 0.4 mg PO DAILY 04/07/22 11/06/23 cephALEXin [Keflex] 500 mg PO Q6H #28 cap 11/03/23 11/06/23 Albuterol Sulf [Ventolin Hfa 1 - 2 puffs INH Q4HR PRN #1 each 11/06/23 Inhaler] Amox/Clav 875/125 [Augmentin] 1 each PO Q12H #14 tablet 11/06/23 Ascorbic Acid [Vitamin C] 1,000 mg PO DAILY 11/06/23 11/06/23 Azelastine HCl 2 spray NS BID 11/06/23 11/06/23 Azithromycin [Zithromax] 1 tab PO DAILY #4 tab 11/06/23 Carbidopa/Levodopa 1 each PO TID 11/06/23 11/06/23 [Carbidopa-Levodopa 25-100 Tab] Cholecalciferol (Vitamin D3) 50 mcg PO DAILY 11/06/23 11/06/23 [Vitamin D3] Cyanocobalamin (Vitamin B-12) 1,000 mcg PO DAILY 11/06/23 11/06/23 [Vitamin B-12] Fluticasone Propion/Salmeterol 1 each IH BID 11/06/23 11/06/23 [Wixela 500-50 Inhub] Fluticasone [Flonase] 1 sprays JORGE A BID 11/06/23 11/06/23 Ipratropium/Albuterol [Duoneb] 3 ml INH Q6H PRN 11/06/23 11/06/23 Niacin [Niaspan] 500 mg PO DAILY 11/06/23 11/06/23 [place]-3/Dha/Epa/Fish Oil [Fish Oil 1,000 mg PO DAILY 11/06/23 11/06/23 1,000 mg Softgel] Pantoprazole Sodium [Protonix] 20 mg PO DAILY 11/06/23 11/06/23 Tiotropium Tea 2 inh IH DAILY 11/06/23 11/06/23 Turmeric Root Extract [Turmeric] 1,000 mg PO DAILY 11/06/23 11/06/23 predniSONE [Deltasone] 60 mg PO DAILY 4 Days #12 tablet 11/06/23 - Allergies Allergies/Adverse Reactions: Allergies Allergy/AdvReac Type Severity Reaction Status Date / Time doxycycline AdvReac Nausea Verified 11/06/23 01:42 - Social History Does the pt smoke?: No Smoking Status: Former smoker Does the pt drink ETOH?: No Does the pt have substance abuse?: No - Immunizations Immunizations are current?: Yes - POLST Patient has POLST: No PD ED PE NORMAL - General General: Alert and oriented X 3, No acute distress, Well developed/nourished - HEENT HEENT: PERRL, Pharynx benign, Other (Scabbed wounds over nose and bruising to face from recent fall) - Neck Neck: Supple, no meningeal sign, No bony TTP - Cardiac Cardiac: RRR, Strong equal pulses - Respiratory Respiratory: No respiratory distress, Other (Diminished breath sounds bilaterally) - Abdomen Abdomen: Normal bowel sounds, Soft, Non tender, Non distended - Derm Derm: Warm and dry - Extremities Extremities: No deformity, Other (Tremor of bilateral upper extremities) - Neuro Neuro: Alert and oriented X 3, No motor deficit, Normal speech Results - Vitals Vitals: Vital Signs - 24 hr 11/06/23 11/06/23 11/06/23 00:37 01:03 01:30 Temperature 37.9 C Heart Rate 109 H 114 H 110 H Respiratory 22 23 29 H Rate Blood Pressure 157/84 H 143/82 H 136/74 H O2 Saturation 96 93 94 11/06/23 11/06/23 11/06/23 01:36 02:00 02:30 Temperature 37.3 C 37.3 C Heart Rate 110 H 110 H Respiratory 23 19 Rate Blood Pressure 123/61 121/61 O2 Saturation 94 92 11/06/23 11/06/23 11/06/23 03:00 03:15 03:30 Temperature Heart Rate 107 H 108 H 108 H Respiratory 22 24 19 Rate Blood Pressure 108/70 113/70 O2 Saturation 98 93 Oxygen O2 Source Room air - EKG (time done) 0059 EKG releavant findings:: EKG personally interpreted by author of this note. Relevant findings are: Rate 114, sinus tachycardia, no STEMI, QTc 425 - Labs Labs: Laboratory Tests 11/06/23 11/06/23 11/06/23 00:50 00:50 01:14 WBC 10.3 RBC 4.90 Hgb 11.7 L Hct 38.3 L MCV 78.2 L MCH 23.9 L MCHC 30.5 L RDW 17.4 H Plt Count 264 MPV 9.1 Neut # (Auto) 9.4 H Lymph # (Auto) 0.[address] [place] # (Auto) 0.4 Eos # (Auto) 0.1 Baso # (Auto) 0.0 Absolute Nucleated RBC 0.00 Nucleated RBC % 0.0 Sodium Potassium Chloride Carbon Dioxide Anion Gap BUN Creatinine Estimated GFR (MDRD) Glucose Lactic Acid Calcium Total Bilirubin AST ALT Alkaline Phosphatase B-Natriuretic Peptide Total Protein Albumin Globulin Albumin/Globulin Ratio Lipase Urine Color YELLOW Urine Clarity CLEAR Urine pH 5.5 Ur Specific [place] 1.025 Urine Protein NEGATIVE Urine Glucose (UA) NEGATIVE Urine Ketones NEGATIVE Urine Occult Blood NEGATIVE Urine Nitrite NEGATIVE Urine Bilirubin NEGATIVE Urine Urobilinogen 1 (NORMAL) Ur Leukocyte Esterase NEGATIVE Ur Microscopic Review NOT INDICATED Urine Culture Comments NOT INDICATED Nasal Adenovirus (PCR) NOT DETECTED Nasal B. parapertussis DNA (PCR) NOT DETECTED Nasal Coronavir 229E PCR NOT DETECTED Nasal Coronavir HKU1 PCR NOT DETECTED Nasal Coronavir NL63 PCR NOT DETECTED Nasal Coronavir OC43 PCR NOT DETECTED Nasal Enterovir/Rhinovir PCR NOT DETECTED Nasal Influenza B PCR NOT DETECTED Nasal Influenza A PCR NOT DETECTED Nasal Parainfluen 1 PCR NOT DETECTED Nasal Parainfluen 2 PCR NOT DETECTED Nasal Parainfluen 3 PCR NOT DETECTED Nasal Parainfluen 4 PCR NOT DETECTED Nasal RSV (PCR) NOT DETECTED Nasal B.pertussis DNA PCR NOT DETECTED Nasal C.pneumoniae (PCR) NOT DETECTED Jorge A Human Metapneumo PCR NOT DETECTED Nasal M.pneumoniae (PCR) NOT DETECTED Nasal SARS-CoV-2 (PCR) NOT DETECTED 11/06/23 11/06/23 11/06/23 01:14 01:14 01:14 WBC RBC Hgb Hct MCV MCH MCHC RDW Plt Count MPV Neut # (Auto) Lymph # (Auto) [place] # (Auto) Eos # (Auto) Baso # (Auto) Absolute Nucleated RBC Nucleated RBC % Sodium 135 Potassium 4.0 Chloride 100 L Carbon Dioxide 25 Anion Gap 10.0 BUN 21 H Creatinine 0.9 Estimated GFR (MDRD) 81 L Glucose 125 H Lactic Acid < 0.2 L Calcium 9.5 Total Bilirubin 1.6 H AST 16 ALT 7 L Alkaline Phosphatase 71 B-Natriuretic Peptide 111 H Total Protein 6.7 Albumin 4.0 Globulin 2.7 Albumin/Globulin Ratio 1.5 Lipase 19 Urine Color Urine Clarity Urine pH Ur Specific [place] Urine Protein Urine Glucose (UA) Urine Ketones Urine Occult Blood Urine Nitrite Urine Bilirubin Urine Urobilinogen Ur Leukocyte Esterase Ur Microscopic Review Urine Culture Comments Nasal Adenovirus (PCR) Nasal B. parapertussis DNA (PCR) Nasal Coronavir 229E PCR Nasal Coronavir HKU1 PCR Nasal Coronavir NL63 PCR Nasal Coronavir OC43 PCR Nasal Enterovir/Rhinovir PCR Nasal Influenza B PCR Nasal Influenza A PCR Nasal Parainfluen 1 PCR Nasal Parainfluen 2 PCR Nasal Parainfluen 3 PCR Nasal Parainfluen 4 PCR Nasal RSV (PCR) Nasal B.pertussis DNA PCR Nasal C.pneumoniae (PCR) Jorge A Human Metapneumo PCR Nasal M.pneumoniae (PCR) Nasal SARS-CoV-2 (PCR) PD Medical Decision Making - ED course Complexity details: reviewed results, d/w patient ED course: Patient presenting for evaluation ofFeverish, weak, cough. On arrival he has a temperature of 37.9 and is tachycardic. Sepsis workup initiated. Patient was given a neb treatment from EMS and reports feeling better upon arrival to ER. EKG reviewed and nonischemic. A CBC, chemistries, respiratory swab, BNP, chest x-ray were reviewed. Patient appears to have right sided pneumonia noted on chest x-ray.Patient given a dose of Rocephin as well as azithromycin through the IV as well as IV fluids. Patient did require additional neb treatment and was also started on a course of prednisone given his history of asthma. Respiratory swab is negative. Patient reports he is feeling better here. He is on room air and not requiring supplemental oxygen. Port PSI score places him into Risk class III. Patient feels that he can go home.Will have patient's stop cephalexin he was previously prescribed and have him continue with Augmentin and azithromycin. at the bedside. No questions or concerns voiced to me. Patient counseled on treatment plan as well as concerning symptoms to return for. Departure - Departure Disposition: 01 Home, Self Care Clinical Impression: Asthma exacerbation, CAP (community acquired pneumonia) Condition: Stable Instructions: ED Pneumonia Adult Prescriptions: Albuterol Sulf [Ventolin Hfa Inhaler] 1 - 2 puffs INH Q4HR PRN #1 each PRN Reason: Shortness Of Air/Wheezing Amox/Clav 875/125 [Augmentin] 1 each PO Q12H #14 tablet predniSONE [Deltasone] 60 mg PO DAILY 4 Days #12 tablet Azithromycin [Zithromax] 1 tab PO DAILY #4 tab Comments: You are found to have a low-grade fever here this evening. Your testing tonight shows that you have pneumonia. We did check for COVID, flu, RSV and few other common cold viruses and the swab was negative. We did also give you 2 antibiotics as well as start you on a course of prednisone and also give you a breathing treatment. I am sending prescriptions to [facility] in [place]. Please stop taking the cephalexin antibiotic you were previously sent home on. Please start taking the following medications - Amoxicillin clavulanic acid (Augmentin) - next dose this evening 11/06/23 - Azithromycin (Zithromax) - next dose tomorrow morning 11/07/23 - Prednisone - next dose tomorrow morning 11/07/23 Return to the emergency department with any worsening symptoms. Forms: PCP List Discharge Date/Time: 11/06/23 04:07
[2023-11-06] MEDS: AZITHROMYCIN INJ 500 MG in SODIUM CHLORIDE 0.9% 250 ML IV STA (02:23)
[2023-11-06] MEDS: predniSONE 20 MG TABLET PO STA (03:14)
[2023-11-06] MEDS: IPRATROPIUM/ALBUTEROL 3 ML NEB INH STA (03:15)
[2023-11-06 03:40] VITALS: BP 113/70; O2SAT 93
== END 2023-11-06 04:07 | disposition home or self-care (01) ==
LOC: EDUNIT# → ED 00:30
DX: J45.901 Unspecified asthma with (acute) exacerbation (principal); J18.9 Pneumonia, unspecified organism; I44.7 Left bundle-branch block, unspecified; R00.0 Tachycardia, unspecified; Z20.818 Contact with and (suspected) exposure to other bacterial communicable diseases; Z20.822 Contact with and (suspected) exposure to COVID-19; Z20.828 Contact with and (suspected) exposure to other viral communicable diseases
CPT/HCPCS: 36415; 71045; 80053; 81003; 83605; 83690; 83880; 85025; 87040; 87633; 93005; 94640; 94664; 96365; 96367; 99284; A9270; J7512; 81001; 87086

== ENCOUNTER 2023-11-06 05:15 | Outpatient (CLI) | payer OTHER | END 2023-11-06 05:16 | disposition EMS.NT | LOC: EMS 05:15 | DX: R53.1 Weakness (principal) ==

== ENCOUNTER 2023-11-15 04:07 | Outpatient (CLI) | payer OTHER | END 2023-11-15 22:30 | disposition left against medical advice (07) | LOC: EMS 04:07 | DX: R06.00 Dyspnea, unspecified (principal); R45.89 Other symptoms and signs involving emotional state ==

== ENCOUNTER 2023-11-18 02:42 | Outpatient (CLI) | payer OTHER | END 2023-11-18 23:59 | disposition left against medical advice (07) | LOC: EMS 02:42 | DX: R06.02 Shortness of breath (principal) ==

== ENCOUNTER 2023-11-18 08:52 | Outpatient (CLI) | payer OTHER | END 2023-11-18 23:59 | disposition critical access hospital (66) | LOC: EMS 08:52 | DX: R06.00 Dyspnea, unspecified (principal) | CPT/HCPCS: A0425; A0427 ==

== ENCOUNTER 2023-11-18 09:28 | Emergency (ER) | payer OTHER ==
--- NOTE | 2023-11-18 10:52 | ED Physician Documentation ---
PD HPI DYSPNEA - Stated complaint Stated Complaint: SOA - Chief complaint Chief Complaint: Resp - History obtained from History obtained from: Patient, Family ( at bedside answers for pateint) - History of Present Illness Timing - onset: How many months ago (1) Timing - onset during: Rest Timing - duration: Months (1) Timing - details: Gradual onset, Still present, Waxing and waning Inciting event(s): URI Improved by: Inhaler/neb, Rest, Sitting up Worsened by: Exertion, Laying flat, Coughing Associated symptoms: Cough. No: Chest pain / discomfort, Diaphoresis, Bilateral edema, Unilateral edema Similar symptoms before: Diagnosis (exacerabation of COPD/pneumonia) Recently seen: Emergency Dept - Additional information Additional information: Leeroy Allen is an 78-year-old male who has a history of COPD and over the past month he has had a worsening of his symptoms to where his nebulizer is not helping him anymore. He is having symptoms of orthopnea and PND and is having to sit up in his easy chair to catch his breath. He is finding a shorter interval between times of needing a treatment and he is finding his inhaler is not effective. He has had a visit to the emergency department 3 times in October once with an exacerbation of COPD then a fall and collapse followed by a pneumonia. After his first visit to the emergency department and initiation of steroid therapy he had some improvement for several days and then he continued to have dyspnea. He is having enough dyspnea that he is able to get across the room he is very short of breath and takes a long time to recover. He feels that he did not recover yesterday. Review of Systems Constitutional: denies: Fever Eyes: denies: Decreased vision Ears: denies: Ear pain Nose: denies: Rhinorrhea / runny nose, Congestion Throat: denies: Sore throat Cardiac: denies: Chest pain / pressure, Palpitations, Pedal edema, Calf pain Respiratory: reports: Dyspnea, Cough, Wheezing GI: denies: Abdominal Pain, Nausea, Vomiting : denies: Dysuria, Frequency Skin: denies: Rash Musculoskeletal: denies: Neck pain, Back pain, Extremity pain PD PAST MEDICAL HISTORY - Past Medical History Cardiovascular: Hypertension, High cholesterol Respiratory: Asthma, Pneumonia Neuro: Parkinson's Endocrine/Autoimmune: Type 2 diabetes GI: GERD, Ulcers, Diverticulitis, Other : Benign prostate hypertrophy - Past Surgical History Past Surgical History: Yes General: Cholecystectomy, Colonoscopy - Present Medications Home Medications: Ambulatory Orders Medication Instructions Recorded Confirmed Atorvastatin Calcium 40 mg PO QPM 04/07/22 11/18/23 Enalapril Maleate [Vasotec] 20 mg PO BID 04/07/22 11/18/23 Metformin HCl [Metformin ER 1,000 mg PO BID 04/07/22 11/18/23 Osmotic] Metoprolol Succinate [Toprol Xl] 25 mg PO BID 04/07/22 11/18/23 Tamsulosin HCl [Flomax] 0.4 mg PO DAILY 04/07/22 11/18/23 Albuterol Sulf [Ventolin Hfa 1 - 2 puffs INH Q4HR PRN #1 each 11/06/23 11/18/23 Inhaler] Ascorbic Acid [Vitamin C] 1,000 mg PO DAILY 11/06/23 11/18/23 Azelastine HCl 2 spray NS BID 11/06/23 11/18/23 Carbidopa/Levodopa 1 each PO TID 11/06/23 11/18/23 [Carbidopa-Levodopa 25-100 Tab] Cholecalciferol (Vitamin D3) 50 mcg PO DAILY 11/06/23 11/18/23 [Vitamin D3] Cyanocobalamin (Vitamin B-12) 1,000 mcg PO DAILY 11/06/23 11/18/23 [Vitamin B-12] Fluticasone Propion/Salmeterol 1 each IH BID 11/06/23 11/18/23 [Wixela 500-50 Inhub] Fluticasone [Flonase] 1 sprays JORGE A BID 11/06/23 11/18/23 Ipratropium/Albuterol [Duoneb] 3 ml INH Q6H PRN 11/06/23 11/18/23 Niacin [Niaspan] 500 mg PO DAILY 11/06/23 11/18/23 [place]-3/Dha/Epa/Fish Oil [Fish Oil 1,000 mg PO DAILY 11/06/23 11/18/23 1,000 mg Softgel] Pantoprazole Sodium [Protonix] 20 mg PO DAILY 11/06/23 11/18/23 Tiotropium [place] 2 inh IH DAILY 11/06/23 11/18/23 Turmeric Root Extract [Turmeric] 1,000 mg PO DAILY 11/06/23 11/18/23 Cefdinir 300 mg PO BID #20 cap 11/18/23 dexAMETHasone [Decadron] 4 mg PO BIDWM #12 tablet 11/18/23 levoFLOXacin [Levaquin] 500 mg PO DAILY #20 tablet 11/18/23 - Allergies Allergies/Adverse Reactions: Allergies Allergy/AdvReac Type Severity Reaction Status Date / Time doxycycline AdvReac Nausea Verified 11/18/23 09:43 - Social History Does the pt smoke?: No Smoking Status: Never smoker Does the pt drink ETOH?: No Does the pt have substance abuse?: No - Immunizations Immunizations are current?: Yes - POLST Patient has POLST: No PD ED PE NORMAL - Vitals Vital signs reviewed: Yes (hypertensive ) - General General: Alert and oriented X 3, No acute distress, Well developed/nourished - HEENT HEENT: Atraumatic, PERRL, EOMI - Neck Neck: Supple, no meningeal sign, No bony TTP - Cardiac Cardiac: RRR, No murmur - Respiratory Respiratory: No respiratory distress, Other (diminished breath sounds ) - Abdomen Abdomen: Soft, Non tender - Back Back: No CVA TTP, No spinal TTP - Derm Derm: Normal color, Warm and dry, No rash - Extremities Extremities: No deformity, No edema - Neuro Neuro: Alert and oriented X 3, 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, No motor deficit, No sensory deficit, Normal speech Eye Opening: Spontaneous Motor: Obeys Commands Verbal: Oriented GCS Score: 15 - Psych Psych: Normal mood, Normal affect Results - Vitals Vitals: Vital Signs - 24 hr 11/18/23 11/18/23 11/18/23 09:33 11:10 11:57 Temperature 36.3 C L Heart Rate 94 104 H 102 H Respiratory 18 20 22 Rate Blood Pressure 156/68 H 136/80 H O2 Saturation 94 94 11/18/23 13:00 Temperature Heart Rate 106 H Respiratory 20 Rate Blood Pressure 158/78 H O2 Saturation 95 Oxygen O2 Source Room air - EKG (time done) 1101 EKG releavant findings:: EKG personally interpreted by author of this note. Relevant findings are: Rate: Rate (enter#) (99) Rhythm: Other (PAC) [place]: LAD Compare to prior EKG: Changed from prior EKG (SPT 11-06-23 rate is slower) Computer interpretation: Agree with computer - Labs Labs: Laboratory Tests 11/18/23 11/18/23 11/18/23 11:02 11:02 11:10 WBC 11.8 H RBC 4.76 Hgb 11.6 L Hct 37.2 L MCV 78.2 L MCH 24.4 L MCHC 31.2 L RDW 18.3 H Plt Count 359 MPV 8.7 Neut # (Auto) 11.0 H Lymph # (Auto) 0.4 L Parmer # (Auto) 0.3 Eos # (Auto) 0.0 Baso # (Auto) 0.0 Absolute Nucleated RBC 0.00 Nucleated RBC % 0.0 Sodium 134 L Potassium 3.7 Chloride 99 L Carbon Dioxide 27 Anion Gap 8.0 BUN 17 Creatinine 0.8 Estimated GFR (MDRD) 93 Glucose 146 H Lactic Acid 1.2 Calcium 9.7 Total Bilirubin 1.4 H AST 18 ALT < 3 L Alkaline Phosphatase 63 Total Protein 6.6 Albumin 3.8 Globulin 2.8 Albumin/Globulin Ratio 1.4 Lipase 21 Urine Color Urine Clarity Urine pH Ur Specific [place] Urine Protein Urine Glucose (UA) Urine Ketones Urine Occult Blood Urine Nitrite Urine Bilirubin Urine Urobilinogen Ur Leukocyte Esterase Ur Microscopic Review Urine Culture Comments 11/18/23 11:33 WBC RBC Hgb Hct MCV MCH MCHC RDW Plt Count MPV Neut # (Auto) Lymph # (Auto) [place] # (Auto) Eos # (Auto) Baso # (Auto) Absolute Nucleated RBC Nucleated RBC % Sodium Potassium Chloride Carbon Dioxide Anion Gap BUN Creatinine Estimated GFR (MDRD) Glucose Lactic Acid Calcium Total Bilirubin AST ALT Alkaline Phosphatase Total Protein Albumin Globulin Albumin/Globulin Ratio Lipase Urine Color YELLOW Urine Clarity CLEAR Urine pH 6.0 Ur Specific [place] 1.025 Urine Protein NEGATIVE Urine Glucose (UA) NEGATIVE Urine Ketones TRACE Urine Occult Blood NEGATIVE Urine Nitrite NEGATIVE Urine Bilirubin NEGATIVE Urine Urobilinogen 0.2 (NORMAL) Ur Leukocyte Esterase NEGATIVE Ur Microscopic Review NOT INDICATED Urine Culture Comments NOT INDICATED - Rads (name of study) CTA chest Relevant Findings:: Prelim report reviewed (Impression: No central pulmonary embolus. Bilateral pulmonary nodules and spiculated nodule in the left upper lobe. The latter is concerning for potential malignancy. Additional nodules could be collections representative of infection or inflammation or given appearance of the left upper lobe nodule more agg), EMP independent interpretation of test, See rad report PD Medical Decision Making - ED course Complexity details: reviewed results, re-evaluated patient, considered differential, d/w patient, d/w family Reviewed Lab Results: Impression: No central pulmonary embolus. Bilateral pulmonary nodules and spiculated nodule in the left upper lobe. The latter is concerning for potential malignancy. Additional nodules could be collections representative of infection or inflammation or given appearance of the left upper lobe nodule more aggressive etiologies such as metastatic disease. Recommend correlation with the patient's symptoms and short interval imaging follow-up after appropriate therapy may be obtained in 2 to 4 weeks if concern for pneumonia persist otherwise, consideration of PET scan or biopsy for upper lobe nodule is recommended. We reviewed a complete blood cell count showing an elevated white blood cell count of 11.8 and this is high for the patient even with the pneumonia he had 12 days ago. Hemoglobin and hematocrit were both low at 11.6 and 37.2 and these levels are similar for the patient over the past 2 years. Chemistries showed a serum sodium low at 134 chloride low at 99 potassium is normal at 3.7 BUN and creatinine are normal lactate is 1.2 bilirubin is mildly elevated at 1.4 the rest of the liver functions are normal. Urinalysis is unremarkable. These laboratory studies are concerning for the presence of pneumonia with an elevated white blood cell count. His CT exam is concerning for the possibility of malignancy as well. ED course: 78-year-old Leeroy Allen does not seem to be getting much relief from his shortness of breath despite a treatment for exacerbation of COPD under treatment for pneumonia. Today we will treat him for both simultaneously. He had Augmentin and azithromycin as treatment most recently and today we will try cefdinir and leviquen as he is allergic to doxycycline. Departure - Departure Disposition: 01 Home, Self Care Clinical Impression: COPD exacerbation Pneumonia Qualifiers: Pneumonia type: due to unspecified organism Laterality: bilateral Lung location: lower lobe of lung Qualified Code(s): J18.9 - Pneumonia, unspecified organism Condition: Stable Instructions: ED COPD Flare, ED Pneumonia Adult Follow-Up: Belem Duvall MD [Primary Care Provider] - Prescriptions: Cefdinir 300 mg PO BID #20 cap dexAMETHasone [Decadron] 4 mg PO BIDWM #12 tablet levoFLOXacin [Levaquin] 500 mg PO DAILY #20 tablet Comments: Leeroy today looks like you have had a setback in your lung disease with treatments that have not resulted in resolution. This may be either a general progression of your disease at 78 years old or that treatment has simply failed and alternative agents are required. We are treating you today for exacerbation of COPD and pneumonia. I will put you on a 6-day course of dexamethasone and a 10-day course of antibiotic to include cefdinir to be taken twice per day and Levaquin to be taken once per day. These medications have been e-scribed to the [facility] in [place]. Our expectation with treatment is continued improvement day by day and not worsening. A follow-up with your primary care doctor is indicated for confirmation of resolution. There are findings on your CT scan that are concerning for a potential malignancy. This is a follow-up that you will need to do even if you are feeling better. Forms: PCP List
[2023-11-18] MEDS: IPRATROPIUM/ALBUTEROL 3 ML NEB INH STA (11:04)
[2023-11-18 11:18] LABS: BASOPHILS % (AUTO) 0.2 %; EOSINOPHILS % (AUTO) 0.3 %; HCT - HEMATOCRIT 37.2 % (42.0-52.0); HGB - HEMOGLOBIN 11.6 g/dL (14.0-18.0); LYMPHOCYTES # (AUTO) 0.4 10^3/uL (1.5-3.5); LYMPHOCYTES % (AUTO) 3.7 %; MEAN CORPUSCULAR HEMOGLOBIN 24.4 pg (27.0-31.0); MEAN CORPUSCULAR HGB CONC 31.2 g/dL (32.0-36.0); MEAN CORPUSCULAR VOLUME 78.2 fL (80.0-94.0); MEAN PLATELET VOLUME 8.7 fL (7.4-11.4); MONOCYTES # (AUTO) 0.3 10^3/uL (0.0-1.0); MONOCYTES % (AUTO) 2.2 %; NEUTROPHILS % (AUTO) 93.3 %; PLT - PLATELET COUNT 359 10^3/uL (130-450); RED BLOOD COUNT 4.76 10^6/uL (4.70-6.10); RED CELL DISTRIBUTION WIDTH 18.3 % (12.0-15.0); WHITE BLOOD COUNT 11.8 x10^3/uL (4.8-10.8)
[2023-11-18] MEDS: DEXAMETHASONE 10 MG/ML VIAL IVP STA (11:24)
[2023-11-18 11:31] LABS: LIPASE 21 U/L (11-82)
[2023-11-18 11:32] LABS: ALBUMIN 3.8 g/dL (3.2-5.5); ALBUMIN/GLOBULIN RATIO 1.4 (1.0-2.2); ALKALINE PHOSPHATASE 63 IU/L (42-121); ALT ALANINE AMINOTRANSFERASE < 3 IU/L (10-60); AST ASPARTATE AMINOTRANSFERASE 18 IU/L (10-42); BILIRUBIN,TOTAL 1.4 mg/dL (0.2-1.0); BUN - BLOOD UREA NITROGEN 17 mg/dL (6-20); CALCIUM 9.7 mg/dL (8.5-10.3); CARBON DIOXIDE - CO2 27 mmol/L (21-32); CHLORIDE 99 mmol/L (101-111); CREATININE 0.8 mg/dL (0.6-1.3); GFR - MDRD 93 (>89); GLUCOSE 146 mg/dL (74-104); POTASSIUM 3.7 mmol/L (3.5-4.5); SODIUM 134 mmol/L (135-145); TOTAL PROTEIN 6.6 g/dL (6.4-8.9)
[2023-11-18 11:42] LABS: BILIRUBIN,URINE NEGATIVE (NEGATIVE); GLUCOSE, URINE (UA) NEGATIVE (NEGATIVE); KETONES,URINE (UA) TRACE mg/dL (NEGATIVE); LEUKOCYTE ESTERASE, URINE NEGATIVE (NEGATIVE); NITRITE,URINE NEGATIVE (NEGATIVE); OCCULT BLOOD,URINE NEGATIVE (NEGATIVE); PROTEIN,URINE NEGATIVE (NEGATIVE); UROBILINOGEN,URINE 0.2 (NORMAL) E.U./dL (NORMAL)
[2023-11-18 11:53] LABS: CLARITY,URINE CLEAR (CLEAR)
[2023-11-18] MEDS ORDERED: iohexoL-300 100 ML VIAL ONE (12:15)
[2023-11-18] MEDS: iohexoL-300 100 ML VIAL IVP ONE (12:54)
--- NOTE | 2023-11-18 13:02 | CT Report ---
PROCEDURE: Angio Chest INDICATIONS: persistent dyspnea ?PE CONTRAST: 80ml omni 300 TECHNIQUE: After the administration of intravenous contrast, 2 mm axial images were acquired from the pulmonary apices to the posterior costophrenic angles during the arterial phase. In addition, 1 mm lung kernel and 5 mm soft tissue kernel reconstructions were performed. 3-dimensional coronal oblique maximum int ensity projection (MIP) reformats, 8 mm axial MIP, and 5 mm coronal and sagittal MPR reformats were t hen performed through the thorax. For radiation dose reduction, the following was used: automated exp osure control, adjustment of mA and/or kV according to patient size. COMPARISON: Chest x-ray 11/06/2023 FINDINGS: Image quality: Secondary to contrast opacification, only central/main pulmonary arteries are evaluate d. Distal branches are suboptimally opacified and cannot be evaluated. Large vessels: No filling defects within the opacified pulmonary arteries, accounting for motion and contrast timing. No evidence of acute aortic syndrome or aortic aneurysm. Lungs and pleura: No consolidation. No pleural effusions. No pneumothorax. Spiculated nodular appear ing opacity in the left upper lobe measuring 1.6 cm on series 6 image 32. No priors are available for comparison. Additional nodular opacities are present inferior aspect of the upper lobes bilaterally but more prominently in the bases. Mediastinum: Heart size is normal. No pericardial effusion. No large vessel abnormality. No mediastin al adenopathy by size criteria. Chest wall and lower neck: Thyroid is unremarkable. No axillary or supraclavicular adenopathy by size . Bones: No aggressive osseous abnormality. Upper Abdomen: Simple right ovarian cyst. IMPRESSION: No central pulmonary embolus. Bilateral pulmonary nodules with spiculated nodule in the left upper lobe. The latter is concerning f or potential malignancy. Additional nodules could be national sales representative of infection or inflammation or g iven appearance of left upper lobe nodule more aggressive etiology such as metastatic disease. Recomm end correlation patient's symptoms and short interval imaging follow-up after appropriate therapy may be obtained in 2-4 weeks if concern for pneumonia persists. Otherwise, consideration of PET and/or b iopsy for upper lobe nodule is recommended. Reviewed by: Alfreda Ellsworth MD on 11/18/2023 1:01 PM PDT Approved by: Alfreda Ellsworth MD on 11/18/2023 1:01 PM PDT Station ID: [id number]
[2023-11-18] MEDS: SODIUM CHLORIDE 0.9% 1,000 ML IV STA (13:55)
[2023-11-18 14:57] VITALS: BP 148/67; O2SAT 96
== END 2023-11-18 15:00 | disposition home or self-care (01) ==
LOC: ED 09:28
DX: J44.1 Chronic obstructive pulmonary disease with (acute) exacerbation (principal); J44.0 Chronic obstructive pulmonary disease with (acute) lower respiratory infection; J18.9 Pneumonia, unspecified organism; E80.6 Other disorders of bilirubin metabolism; E87.1 Hypo-osmolality and hyponatremia; E87.8 Other disorders of electrolyte and fluid balance, not elsewhere classified; D72.829 Elevated white blood cell count, unspecified; I49.1 Atrial premature depolarization; R91.8 Other nonspecific abnormal finding of lung field; I10 Essential (primary) hypertension; E11.9 Type 2 diabetes mellitus without complications; Z79.84 Long term (current) use of oral hypoglycemic drugs
CPT/HCPCS: 36415; 71275; 80053; 81003; 83605; 83690; 85025; 87040; 93005; 94640; 96374; 99284; Q9967; 81001; 87086

== ENCOUNTER 2023-11-24 07:27 | Outpatient (CLI) | payer OTHER | END 2023-11-24 23:59 | disposition critical access hospital (66) | LOC: EMS 07:27 | DX: K62.89 Other specified diseases of anus and rectum (principal); K59.00 Constipation, unspecified | CPT/HCPCS: A0425; A0429 ==

== ENCOUNTER 2023-11-24 08:02 | Emergency (ER) | payer OTHER ==
--- NOTE | 2023-11-24 08:07 | ED Physician Documentation ---
History of Present Illness - Stated complaint Stated Complaint: RECTAL PX - History obtained from History obtained from: Patient - History of Present Illness Timing: How many days ago (2-3) - Additonal information Additional information: Leeroy Santos is an 78-year-old male with a history of Parkinson's disease who presents to the emergency department today with rectal pain. He has a history of constipation and he has been having some difficulty getting stool to move. He did have several golf ball size pieces of stool this morning. Review of Systems Constitutional: denies: Fever Respiratory: denies: Cough GI: reports: Abdominal Pain, Constipation Skin: denies: Rash Musculoskeletal: denies: Neck pain, Back pain, Extremity pain Neurologic: denies: Generalized weakness, Focal weakness, Numbness PD PAST MEDICAL HISTORY - Past Medical History Cardiovascular: Hypertension, High cholesterol Respiratory: Asthma, Pneumonia Neuro: Parkinson's Endocrine/Autoimmune: Type 2 diabetes GI: GERD, Ulcers, Diverticulitis, Other : Benign prostate hypertrophy - Past Surgical History Past Surgical History: Yes General: Cholecystectomy, Colonoscopy - Present Medications Home Medications: Ambulatory Orders Medication Instructions Recorded Confirmed Atorvastatin Calcium 40 mg PO QPM 04/07/22 11/18/23 Enalapril Maleate [Vasotec] 20 mg PO BID 04/07/22 11/18/23 Metformin HCl [Metformin ER 1,000 mg PO BID 04/07/22 11/18/23 Osmotic] Metoprolol Succinate [Toprol Xl] 25 mg PO BID 04/07/22 11/18/23 Tamsulosin HCl [Flomax] 0.4 mg PO DAILY 04/07/22 11/18/23 Albuterol Sulf [Ventolin Hfa 1 - 2 puffs INH Q4HR PRN #1 each 11/06/23 11/18/23 Inhaler] Ascorbic Acid [Vitamin C] 1,000 mg PO DAILY 11/06/23 11/18/23 Azelastine HCl 2 spray NS BID 11/06/23 11/18/23 Carbidopa/Levodopa 1 each PO TID 11/06/23 11/18/23 [Carbidopa-Levodopa 25-100 Tab] Cholecalciferol (Vitamin D3) 50 mcg PO DAILY 11/06/23 11/18/23 [Vitamin D3] Cyanocobalamin (Vitamin B-12) 1,000 mcg PO DAILY 11/06/23 11/18/23 [Vitamin B-12] Fluticasone Propion/Salmeterol 1 each IH BID 11/06/23 11/18/23 [[place]ixela 500-50 Inhub] Fluticasone [Flonase] 1 sprays JORGE A BID 11/06/23 11/18/23 Ipratropium/Albuterol [Duoneb] 3 ml INH Q6H PRN 11/06/23 11/18/23 Niacin [Niaspan] 500 mg PO DAILY 11/06/23 11/18/23 [place]-3/Dha/Epa/Fish Oil [Fish Oil 1,000 mg PO DAILY 11/06/23 11/18/23 1,000 mg Softgel] Pantoprazole Sodium [Protonix] 20 mg PO DAILY 11/06/23 11/18/23 Tiotropium [place] 2 inh IH DAILY 11/06/23 11/18/23 Turmeric Root Extract [Turmeric] 1,000 mg PO DAILY 11/06/23 11/18/23 Cefdinir 300 mg PO BID #20 cap 11/18/23 dexAMETHasone [Decadron] 4 mg PO BIDWM #12 tablet 11/18/23 levoFLOXacin [Levaquin] 500 mg PO DAILY #20 tablet 11/18/23 - Allergies Allergies/Adverse Reactions: Allergies Allergy/AdvReac Type Severity Reaction Status Date / Time doxycycline AdvReac Nausea Verified 11/18/23 09:43 - Social History Does the pt smoke?: No Smoking Status: Never smoker Does the pt drink ETOH?: No Does the pt have substance abuse?: No - Immunizations Immunizations are current?: Yes - POLST Patient has POLST: No PD ED PE NORMAL - Vitals Vital signs reviewed: Yes (hypertensive ) - General General: Alert and oriented X 3, No acute distress, Well developed/nourished, Other (vacant stare of parkinsons. 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, No motor deficit, No sensory deficit, Normal speech Eye Opening: Spontaneous Motor: Obeys Commands Verbal: Oriented GCS Score: 15 - Psych Psych: Normal mood, Normal affect Results - Vitals Vitals: Vital Signs - 24 hr 11/24/23 11/24/23 08:10 11:27 Temperature 36.2 C L Heart Rate 83 75 Respiratory 18 20 Rate Blood Pressure 166/87 H 119/78 O2 Saturation 97 96 Oxygen O2 Source Room air PD Medical Decision Making - ED course Complexity details: re-evaluated patient, considered differential, d/w patient ED course: Chente Buchanan presents to the emergency department with a history of constipation feeling that he is unable to get stool passed his rectum. We applied a oil retention enema without success followed by a soapsuds enema with success. Departure - Departure Disposition: 01 Home, Self Care Clinical Impression: Constipation Qualifiers: Constipation type: unspecified constipation type Qualified Code(s): K59.00 - Constipation, unspecified Condition: Stable Instructions: ED Constipation Follow-Up: Belem Duvall MD [Primary Care Provider] - Comments: [place], today it looks like you are constipated and this is likely a result of your Parkinson's disease. A follow-up with Dr. Duvall is indicated. My recommendation for this type of constipation is to use some milk of magnesia when you are constipated as a stimulant type of laxative and follow this with a regular use of MiraLAX until your colon is retrained. Forms: PCP List Discharge Date/Time: 11/24/23 11:29
[2023-11-24] MEDS: MINERAL OIL ENEMA 133 ML BOTTLE RC STA (08:40)
[2023-11-24 11:30] VITALS: BP 119/78; O2SAT 96
== END 2023-11-24 11:29 | disposition home or self-care (01) ==
LOC: EDUNIT# → ED 08:02
DX: K59.00 Constipation, unspecified (principal); I10 Essential (primary) hypertension; E78.00 Pure hypercholesterolemia, unspecified; G20.A1 Parkinson's disease without dyskinesia, without mention of fluctuations; E11.9 Type 2 diabetes mellitus without complications; Z79.899 Other long term (current) drug therapy; Z79.84 Long term (current) use of oral hypoglycemic drugs; Z79.51 Long term (current) use of inhaled steroids
CPT/HCPCS: 99283; A9270

== ENCOUNTER 2023-11-26 22:58 | Outpatient (CLI) | payer OTHER | END 2023-11-26 22:59 | disposition critical access hospital (66) | LOC: EMS 22:58 | DX: R06.02 Shortness of breath (principal) | CPT/HCPCS: A0425; A0429 ==

== ENCOUNTER 2023-11-26 23:32 | Emergency (ER) | payer OTHER ==
--- NOTE | 2023-11-27 00:40 | ED Physician Documentation ---
PD STEPHANY GA - Stated complaint Stated Complaint: SOA - Chief complaint Chief Complaint: Resp - History obtained from History obtained from: Patient, Family - Additional information Additional information: The patient comes to the emergency department chief complaint of panic attack after finding he could not breathe through his nose tonight. He has had this problem since falling and hitting his nose on the sidewalk about 4 to 5 weeks ago. He had a nasal bone fracture and has had severe congestion ever since. He states that he felt a little worse tonight and it made him feel panicked. He states he did not think to try to breathe through his mouth. The patient states that he does not have any fresh bleeding. He has been referred to ENT through the [facility], his states, but they have not seen him yet. The patient is on Afrin and a steroid spray as needed at home. He also uses albuterol and states that it has helped slightly with the symptoms in the past. No other complaints at this time. He is not currently short of breath and feels much [place]. Medics report oxygen saturations in the upper 90s to 100 and route. PD PAST MEDICAL HISTORY - Past Medical History Past Medical History: Yes Cardiovascular: Hypertension, High cholesterol Respiratory: Asthma, COPD, Pneumonia Neuro: Parkinson's Endocrine/Autoimmune: Type 2 diabetes GI: GERD, Ulcers, Diverticulitis, Other : Benign prostate hypertrophy - Past Surgical History Past Surgical History: Yes General: Cholecystectomy, Colonoscopy - Present Medications Home Medications: Ambulatory Orders Medication Instructions Recorded Confirmed Atorvastatin Calcium 40 mg PO QPM 04/07/22 11/18/23 Enalapril Maleate [Vasotec] 20 mg PO BID 04/07/22 11/18/23 Metformin HCl [Metformin ER 1,000 mg PO BID 04/07/22 11/18/23 Osmotic] Metoprolol Succinate [Toprol Xl] 25 mg PO BID 04/07/22 11/18/23 Tamsulosin HCl [Flomax] 0.4 mg PO DAILY 04/07/22 11/18/23 Albuterol Sulf [Ventolin Hfa 1 - 2 puffs INH Q4HR PRN #1 each 11/06/23 11/18/23 Inhaler] Ascorbic Acid [Vitamin C] 1,000 mg PO DAILY 11/06/23 11/18/23 Azelastine HCl 2 spray NS BID 11/06/23 11/18/23 Carbidopa/Levodopa 1 each PO TID 11/06/23 11/18/23 [Carbidopa-Levodopa 25-100 Tab] Cholecalciferol (Vitamin D3) 50 mcg PO DAILY 11/06/23 11/18/23 [Vitamin D3] Cyanocobalamin (Vitamin B-12) 1,000 mcg PO DAILY 11/06/23 11/18/23 [Vitamin B-12] Fluticasone Propion/Salmeterol 1 each IH BID 11/06/23 11/18/23 [Wixela 500-50 Inhub] Fluticasone [Flonase] 1 sprays JORGE A BID 11/06/23 11/18/23 Ipratropium/Albuterol [Duoneb] 3 ml INH Q6H PRN 11/06/23 11/18/23 Niacin [Niaspan] 500 mg PO DAILY 11/06/23 11/18/23 [place]-3/Dha/Epa/Fish Oil [Fish Oil 1,000 mg PO DAILY 11/06/23 11/18/23 1,000 mg Softgel] Pantoprazole Sodium [Protonix] 20 mg PO DAILY 11/06/23 11/18/23 Tiotropium [place] 2 inh IH DAILY 11/06/23 11/18/23 Turmeric Root Extract [Turmeric] 1,000 mg PO DAILY 11/06/23 11/18/23 Cefdinir 300 mg PO BID #20 cap 11/18/23 dexAMETHasone [Decadron] 4 mg PO BIDWM #12 tablet 11/18/23 levoFLOXacin [Levaquin] 500 mg PO DAILY #20 tablet 11/18/23 - Allergies Allergies/Adverse Reactions: Allergies Allergy/AdvReac Type Severity Reaction Status Date / Time doxycycline AdvReac Nausea Verified 11/26/23 23:45 - Social History Does the pt smoke?: No Smoking Status: Never smoker Does the pt drink ETOH?: No Does the pt have substance abuse?: No - Immunizations Immunizations are current?: Yes - POLST Patient has POLST: No PD ED PE NORMAL - Vitals Vital signs reviewed: Yes - General General: Alert and oriented X 3, No acute distress, Well developed/nourished - HEENT HEENT: PERRL, EOMI, Moist mucous membranes, Other (Some old bruising and abrasion to his nose. No epistaxis. No evidence of acute trauma.) - Neck Neck: Supple, no meningeal sign, No bony TTP - Cardiac Cardiac: RRR, No murmur - Respiratory Respiratory: No respiratory distress, Clear bilaterally - Derm Derm: Normal color, Warm and dry, No rash - Extremities Extremities: No deformity - Neuro Neuro: Alert and oriented X 3 - Psych Psych: Normal mood, Normal affect Results - Vitals Vitals: Vital Signs - 24 hr 11/26/23 23:26 Temperature 36.1 C L Heart Rate 81 Respiratory 17 Rate Blood Pressure 130/110 H O2 Saturation 96 Oxygen O2 Source Room air PD Medical Decision Making - ED course Complexity details: considered differential, d/w patient, d/w family ED course: I discussed with the patient that his oxygen saturation is very good and his lungs are clear. He is in no respiratory distress. I have encouraged him to take slow deep breaths through his mouth when he is feeling anxious about not being able to breathe through his nose. We have discussed that this will be a process that we will likely take some months before he is back to feeling like his nose is no longer swollen inside. He may use his sprays as needed. We have discussed the need for follow-up. No emergent interventions are indicated at this time. Departure - Departure Disposition: 01 Home, Self Care Clinical Impression: Nasal congestion, Panic attack Dyspnea Qualifiers: Dyspnea type: unspecified Qualified Code(s): R06.00 - Dyspnea, unspecified Condition: Stable Instructions: ED Panic Attack Comments: Your breathing is calm, your lungs are clear, and your oxygen saturations very high. There is no evidence of a problem with your breathing or your lung function at this time. If you are start to feel anxious because she cannot breathe through your nose, try taking some controlled breaths through your mouth. You should continue your [facility]
[2023-11-27 01:23] VITALS: BP 136/94; O2SAT 95
== END 2023-11-27 01:15 | disposition home or self-care (01) ==
LOC: EDUNIT# → ED 23:32
DX: R09.81 Nasal congestion (principal); F41.0 Panic disorder [episodic paroxysmal anxiety]; J44.9 Chronic obstructive pulmonary disease, unspecified
CPT/HCPCS: 99283; 99284

== ENCOUNTER 2024-02-02 11:22 | Outpatient (CLI) | payer OTHER ==
--- NOTE | 2024-02-02 18:52 | XRAY Report ---
PROCEDURE: Ankle 3+V RT INDICATIONS: RIGHT PATELLAR TENDON TENDINITIS TECHNIQUE: 3 views of the ankle were acquired. COMPARISON: None. FINDINGS: No acute fracture or dislocation. The ankle mortise is preserved on the nonweightbearing view. No ericka ar dome osteochondral defect. Mild tibiotalar osteoarthritis. Faint vascular calcifications. Thickeni ng of the noninsertional Achilles tendon with intratendinous calcifications. Mild Achilles calcaneal enthesopathy. Loss of the fat at [place]'s fat pad. IMPRESSION: 1.Constellation of findings which can be seen with Achilles tendinosis. 2.No acute fracture or dislocation of the right ankle. Reviewed by: Jacek Sheppard MD on 02/02/2024 6:15 PM PDT Approved by: Jacek Sheppard MD on 02/02/2024 6:15 PM PDT Station ID: [id number]
== END 2024-02-02 11:23 | disposition home or self-care (01) ==
LOC: LAB 11:22
PROVIDERS: ATTEND Physician Assistant
DX: M25.471 Effusion, right ankle (principal); M76.51 Patellar tendinitis, right knee
CPT/HCPCS: 36415; 84550

== ENCOUNTER 2024-04-10 21:16 | Inpatient (IN) ==
--- NOTE | 2024-04-10 22:10 | ED Physician Documentation ---
History of Present Illness Stated complaint Stated Complaint: WEAKNESS,SOA,DEHYDRATED Chief complaint Chief Complaint: Resp Additonal information Additional information: BIBA. HPI from EMS, patient, patient's (who is in the ED at patient's bedside). Patient presents with chief complaint of shortness of breath that is worse with exertion. Also complains of generalized weakness. says patient has had "gurgling" breath sounds since earlier in the day. Patient's past medical history includes Parkinson's disease, COPD. He does not use oxygen at home. He does use as needed inhalers and nebulizers at home. He denies fever, cough. Denies chest pain.This is patient's fifth [facility] ED visit this month; his previous visits have been due to generalized weakness that was attributed to hypomagnesemia. Patient's says patient was evaluated by his PCP yesterday regarding the recurrent hypomagnesemia and plan is to arrange for regular home infusions of magnesium. Meds/Allgy Home Medications Ambulatory Orders Medication Instructions Recorded Confirmed atorvastatin 40 mg tablet 40 mg PO QPM 04/07/22 04/10/24 enalapril maleate 20 mg tablet 20 mg PO BID 04/07/22 04/10/24 (Vasotec) metformin 500 mg tablet,extended 1,000 mg PO BID 04/07/22 04/10/24 release 24hr (osmotic) metoprolol succinate 25 mg 25 mg PO BID 04/07/22 04/10/24 tablet,extended release 24 hr tamsulosin 0.4 mg capsule (Flomax) 0.4 mg PO DAILY 04/07/22 04/10/24 ascorbic acid (vitamin C) 1,000 mg 1,000 mg PO DAILY 11/06/23 04/10/24 tablet azelastine 137 mcg (0.1 %) nasal 2 spray NS BID 11/06/23 04/10/24 spray cyanocobalamin (vitamin B-12) 1,000 mcg PO DAILY 11/06/23 04/10/24 1,000 mcg capsule fluticasone 500 mcg-salmeterol 50 1 ea IH BID 11/06/23 04/10/24 mcg/dose blistr powdr for inhalation (Wixela Inhub) fluticasone propionate 50 1 sprays intranasal BID 06/24/24 11/27/24 mcg/actuation nasal spray,suspension niacin 500 mg tablet,extended 500 mg PO DAILY 11/06/23 04/10/24 release 24 hr omega 6-ema-csg-fish oil 1,000 mg 1,000 mg PO DAILY 11/06/23 04/10/24 (120 mg-180 mg) capsule (Fish Oil) pantoprazole 20 mg tablet,delayed 20 mg PO DAILY 11/06/23 04/10/24 release (Protonix) turmeric root extract 500 mg tablet 1,000 mg PO DAILY 11/06/23 04/10/24 albuterol sulfate 2.5 mg/3 mL 2.5 mg inhalation TID PRN 03/20/24 04/10/24 (0.083 %) solution for nebulization shortness of breath or wheezing aspirin 81 mg tablet,delayed 81 mg PO QDAY 03/20/24 04/10/24 release (Adult Low Dose Aspirin) cholecalciferol (vitamin D3) 50 50 mcg PO QDAY 03/20/24 04/10/24 mcg (2,000 unit) capsule carbidopa 25 mg-levodopa 100 mg 1.5 tab PO TID 04/04/24 04/10/24 tablet megestrol 20 mg tablet 20 mg PO TID 30 days #90 tabs 04/08/24 04/10/24 albuterol sulfate 90 mcg/actuation 2 puff inhalation Q4HR PRN 04/10/24 04/10/24 aerosol inhaler (Ventolin HFA) Shortness Of Air/Wheezing magnesium oxide 400 mg (241.3 mg 400 mg PO BID 04/10/24 04/10/24 magnesium) tablet tiotropium bromide 2.5 2 inh inhalation DAILY 04/10/24 04/10/24 mcg/actuation mist for inhalation Allergies Allergies Allergy/AdvReac Type Severity Reaction Status Date / Time doxycycline AdvReac Nausea Verified 04/10/24 21:54 [facility] Medical History Medical History (Updated 04/11/24 @ 08:20 by GABBI Pruitt) Enlarged prostate Acid reflux High cholesterol Chronic diarrhea Asthma Insulin resistance BPH (benign prostatic hyperplasia) HTN (hypertension) GERD with apnea Hyperlipidemia Surgical History Surgical History (Updated 04/10/24 @ 21:56 by Crystal Haley RN) Hx of cholecystectomy Social History Social History Smoking Status: Former smoker Do you dip or chew tobacco?: No Do you vape?: No Living arrangement: At home Marital Status: Living Condition: With spouse/s.o. Relationship: Home Mobility Equipment: Cane and Walker Do you feel safe in your home environment?: Yes Suffered physical, verbal, emotional, or financial abuse?: No History of Abuse: No ETOH Use: None Substance Use: denies use POLST Patient has POLST: No Exam Constitutional no apparent distress hypokinetic, slow to answer questions and does so with weak/quiet voice, often defers to to answer HENMT oral mucous membranes abnormal (tacky/pasty mucous membranes) Eyes PERRL and EOMs intact bilaterally Respiratory breath sounds equal bilaterally, normal respiratory effort, auscultation abnormal (scattered rhonchi, more pronounced on right) (diminished breath sound) (bilaterally) and no wheezes Cardiovascular normal heart rate noted, regular rhythm noted, no murmur and no edema Gastrointestinal abdomen soft to palpation and nontender to palpation Results Vitals Vitals: Vital Signs - 24 hr 04/10/24 21:18 04/10/24 21:58 04/10/24 22:51 Temperature 36.6 C Temperature Source Temporal Artery Scan Pulse Rate 91 H 89 83 Respiratory Rate 18 16 Blood Pressure 141/87 H 132/80 H 146/81 H O2 Saturation 91 L 92 94 O2 Source Room air Room air Room air If not protocol: Oxygen Flow, liters/minute Pain Intensity 0 0 0 04/10/24 23:51 04/10/24 23:52 04/11/24 00:05 Temperature Temperature Source Pulse Rate 89 Respiratory Rate 18 Blood Pressure 170/76 H O2 Saturation 88 L 94 98 O2 Source Room air Nasal cannula Nasal cannula If not protocol: Oxygen Flow, liters/minute 2 2 Pain Intensity 0 04/11/24 00:09 04/11/24 00:25 04/11/24 00:52 Temperature Temperature Source Pulse Rate 88 89 Respiratory Rate 16 19 Blood Pressure 149/82 H O2 Saturation 94 O2 Source Room air Room air Room air If not protocol: Oxygen Flow, liters/minute 95 Pain Intensity 0 04/11/24 01:51 04/11/24 02:35 04/11/24 02:45 Temperature Temperature Source Pulse Rate 90 94 H Respiratory Rate 18 18 Blood Pressure 156/95 H 174/99 H O2 Saturation 93 82 L 95 O2 Source Room air Room air Nasal cannula If not protocol: Oxygen Flow, liters/minute 2 Pain Intensity 0 0 04/11/24 03:13 04/11/24 03:45 04/11/24 03:50 Temperature Temperature Source Pulse Rate 95 H Respiratory Rate 20 24 Blood Pressure O2 Saturation 94 88 L O2 Source Nasal cannula Room air Room air If not protocol: Oxygen Flow, liters/minute 2 Pain Intensity 04/11/24 03:51 04/11/24 05:00 Temperature 36.9 C Temperature Source Oral Pulse Rate 107 H 105 H Respiratory Rate 22 20 Blood Pressure 148/91 H O2 Saturation 92 97 O2 Source Nasal cannula If not protocol: Oxygen Flow, liters/minute 2 Pain Intensity 0 Oxygen O2 Source Nasal cannula Labs Labs: Laboratory Tests 04/10/24 04/11/24 22:10 02:52 WBC 8.3 RBC 4.37 L Hgb 10.9 L Hct 34.8 L MCV 79.6 L MCH 24.9 L MCHC 31.3 L RDW 18.7 H Plt Count 307 MPV 8.8 Neut # (Auto) 6.9 H Lymph # (Auto) 0.4 L [place] # (Auto) 0.8 Eos # (Auto) 0.1 Baso # (Auto) 0.0 Absolute Nucleated RBC 0.00 Nucleated RBC % 0.0 Sodium 132 L Potassium 3.6 Chloride 96 L Carbon Dioxide 34 H Anion Gap 2.0 L BUN 23 H Creatinine 0.6 Estimated GFR (MDRD) 130 Glucose 124 H Calcium 9.5 Magnesium 1.5 L Total Bilirubin 2.4 H AST 17 ALT 3 L Alkaline Phosphatase 67 Total Protein 6.2 L Albumin 3.7 Globulin 2.5 Albumin/Globulin Ratio 1.5 Lipase 16 Nasal Adenovirus (PCR) NOT DETECTED Nasal B. parapertussis DNA (PCR) NOT DETECTED Nasal Coronavir 229E PCR NOT DETECTED Nasal Coronavir HKU1 PCR NOT DETECTED Nasal Coronavir NL63 PCR NOT DETECTED Nasal Coronavir OC43 PCR NOT DETECTED Nasal Enterovir/Rhinovir PCR NOT DETECTED Nasal Influenza B PCR NOT DETECTED Nasal Influenza A PCR NOT DETECTED Nasal Parainfluen 1 PCR NOT DETECTED Nasal Parainfluen 2 PCR NOT DETECTED Nasal Parainfluen 3 PCR NOT DETECTED Nasal Parainfluen 4 PCR NOT DETECTED Nasal RSV (PCR) NOT DETECTED Nasal B.pertussis DNA PCR NOT DETECTED Nasal C.pneumoniae (PCR) NOT DETECTED Thaddeus Human Metapneumo PCR NOT DETECTED Nasal M.pneumoniae (PCR) NOT DETECTED Nasal SARS-CoV-2 (PCR) NOT DETECTED Rads (name of study) chest xray: Relevant Findings:: Prelim report reviewed and See rad report PD Medical Decision Making ED course Complexity details: reviewed results, considered differential, d/w patient, d/w family and d/w PMD ED course: No concerning nor diagnostic findings on CBC, ER abdominal panel. Mild hyponatremia noted (132), mild hypomagnesemia noted (1.5). Elevated bilirubin (2.4); this result is comparable to previous. Respiratory PCR panel is negative for the viruses tested on this panel. Unremarkable chest x-ray; no evidence of acute process including pneumonia on this study. He is given 2 grams magnesium sulfate IV, 10mg IV decadron, duoneb followed by two albuterol neb treatments. With minimal exertion (walking few steps from bed to bathroom), patient became overtly dyspneic with pulse ox dropping to 88% with good pleth. This was both before and after the decadron and neb treatments; he will thus be admitted to [facility] for further treatment of dyspnea and hypoxia. I discussed this case with the [facility] [place] telehealth practitioner on duty who accepts admit. Discharge Plan Discharge Patient Disposition: [facility] DC/Xfer Condition: Stable Clinical Impression: COPD exacerbation Interventions: ED Admission Assessment Last Done: 04/11/24 06:38
[2024-04-10 22:20] LABS: BASOPHILS % (AUTO) 0.4 %; EOSINOPHILS # (AUTO) 0.1 10^3/uL (0.0-0.7); EOSINOPHILS % (AUTO) 1.6 %; HCT - HEMATOCRIT 34.8 % (42.0-52.0); HGB - HEMOGLOBIN 10.9 g/dL (14.0-18.0); LYMPHOCYTES # (AUTO) 0.4 10^3/uL (1.5-3.5); LYMPHOCYTES % (AUTO) 5.2 %; MEAN CORPUSCULAR HEMOGLOBIN 24.9 pg (27.0-31.0); MEAN CORPUSCULAR HGB CONC 31.3 g/dL (32.0-36.0); MEAN CORPUSCULAR VOLUME 79.6 fL (80.0-94.0); MEAN PLATELET VOLUME 8.8 fL (7.4-11.4); MONOCYTES # (AUTO) 0.8 10^3/uL (0.0-1.0); MONOCYTES % (AUTO) 9.2 %; NEUTROPHILS # (AUTO) 6.9 10^3/uL (1.5-6.6); NEUTROPHILS % (AUTO) 83.5 %; PLT - PLATELET COUNT 307 10^3/uL (130-450); RED BLOOD COUNT 4.37 10^6/uL (4.70-6.10); RED CELL DISTRIBUTION WIDTH 18.7 % (12.0-15.0); WHITE BLOOD COUNT 8.3 x10^3/uL (4.8-10.8)
[2024-04-10 22:32] LABS: MAGNESIUM 1.5 mg/dL (1.7-2.3)
--- NOTE | 2024-04-10 22:33 | XRAY Report ---
PROCEDURE: XR Chest 1V INDICATIONS: dyspnea TECHNIQUE: One view of the chest was acquired. COMPARISON: Chest x-ray 02/17/2024 FINDINGS: Surgical changes and devices: None. Lungs and pleura: No pleural effusions or pneumothorax. Lungs are clear. Mediastinum: Mediastinal contours appear normal. Heart size is normal. Bones and chest wall: No suspicious bony lesions. Overlying soft tissues appear unremarkable. IMPRESSION: No acute cardiopulmonary process. Reviewed by: Alfreda Ellsworth MD on 04/10/2024 10:32 PM [facility] Approved by: Alfreda Ellsworth MD on 04/10/2024 10:32 PM [facility] Station ID: [id number]
[2024-04-10 22:36] LABS: ALBUMIN 3.7 g/dL (3.2-5.5); ALBUMIN/GLOBULIN RATIO 1.5 (1.0-2.2); BILIRUBIN,TOTAL 2.4 mg/dL (0.2-1.0); CALCIUM 9.5 mg/dL (8.5-10.3); CREATININE 0.6 mg/dL (0.6-1.3); POTASSIUM 3.6 mmol/L (3.5-4.5); TOTAL PROTEIN 6.2 g/dL (6.4-8.9)
[2024-04-10] MEDS: MAGNESIUM SULFATE 2 GRAM 2 GM/50 ML BAG IV ONE (22:53)
[2024-04-10] MEDS: SODIUM CHLORIDE 0.9% 1,000 ML IV STA (22:53)
[2024-04-11] MEDS: DEXAMETHASONE 10 MG/ML VIAL IVP STA (00:13)
[2024-04-11] MEDS: IPRATROPIUM/ALBUTEROL 3 ML NEB INH STA (00:25)
[2024-04-11] MEDS: ALBUTEROL NEB 2.5 MG/3 ML INH STA (03:12)
[2024-04-11 04:43] LABS: B. PARAPERTUSSIS- RESP PCR PAN NOT DETECTED; B. PERTUSSIS- RESP PCR PANEL NOT DETECTED; C. PNEUMONIAE- RESP PCR PANEL NOT DETECTED; CORONAVIRUS 229E-RESP PCR NOT DETECTED; CORONAVIRUS HKU1-RESP PCR NOT DETECTED; CORONAVIRUS NL63-RESP PCR NOT DETECTED; CORONAVIRUS OC43-RESP PCR NOT DETECTED; HUMAN METAPNEUMOVIRUS NOT DETECTED; INFLUENZA A- RESP PCR PANEL NOT DETECTED; INFLUENZA B - RESP PCR PANEL NOT DETECTED; M. PNEUMONIAE- RESP PCR PANEL NOT DETECTED; PARAINFLUENZA VIRUS 1 NOT DETECTED; PARAINFLUENZA VIRUS 2 NOT DETECTED; PARAINFLUENZA VIRUS 3 NOT DETECTED; PARAINFLUENZA VIRUS 4 NOT DETECTED; RHINOVIRUS/ENTEROVIRUS NOT DETECTED; RSV- RESP PCR PANEL NOT DETECTED; SARS-CoV-2 -RESP PCR PANEL NOT DETECTED
[2024-04-11] MEDS ORDERED: SODIUM CHLORIDE FLUSH 0.9% 10 ML SYRINGE IVP PRN (05:31)
[2024-04-11] MEDS: IPRATROPIUM/ALBUTEROL 3 ML NEB INH PRN (07:03)
[2024-04-11 07:43] LABS: BASOPHILS % (AUTO) 0.1 %; HCT - HEMATOCRIT 36.1 % (42.0-52.0); HGB - HEMOGLOBIN 11.3 g/dL (14.0-18.0); LYMPHOCYTES # (AUTO) 0.1 10^3/uL (1.5-3.5); LYMPHOCYTES % (AUTO) 1.2 %; MEAN CORPUSCULAR HEMOGLOBIN 25.2 pg (27.0-31.0); MEAN CORPUSCULAR HGB CONC 31.3 g/dL (32.0-36.0); MEAN CORPUSCULAR VOLUME 80.6 fL (80.0-94.0); MEAN PLATELET VOLUME 9.1 fL (7.4-11.4); MONOCYTES # (AUTO) 0.1 10^3/uL (0.0-1.0); MONOCYTES % (AUTO) 0.9 %; NEUTROPHILS # (AUTO) 10.7 10^3/uL (1.5-6.6); NEUTROPHILS % (AUTO) 97.5 %; PLT - PLATELET COUNT 319 10^3/uL (130-450); RED BLOOD COUNT 4.48 10^6/uL (4.70-6.10); RED CELL DISTRIBUTION WIDTH 18.6 % (12.0-15.0); WHITE BLOOD COUNT 10.9 x10^3/uL (4.8-10.8)
[2024-04-11 07:50] LABS: ALBUMIN 3.9 g/dL (3.2-5.5); ALBUMIN/GLOBULIN RATIO 1.6 (1.0-2.2); BILIRUBIN,TOTAL 2.4 mg/dL (0.2-1.0); CALCIUM 9.3 mg/dL (8.5-10.3); CREATININE 0.7 mg/dL (0.6-1.3); POTASSIUM 3.8 mmol/L (3.5-4.5); TOTAL PROTEIN 6.4 g/dL (6.4-8.9)
--- NOTE | 2024-04-11 07:53 | HISTORY & PHYSICAL EXAMINATION ---
Chief Complaint Chief Complaint Chief Complaint: weakness and SOA History of Present Illness Admitted From Admitted From:: ED History Obtained From Records Reviewed: ED and outpatient visits this month. History obtained from: Patient History of Present Illness HPI Comment/Other: Presents to the emergency department last evening with generalized weakness and difficulty breathing. Patient has been seen in the emergency department twice this week. He has a history of Parkinson's disease, COPD hypomagnesemia hyperlipidemia hypertension BPH and anemia. He has been struggling with weakness and anorexia over the past 6 months. He is unable to tell me how long he has had his diagnosis of Parkinson's disease. He denies seeing neurology. Further discussion with his this afternoon. She is experiencing caregiver fatigue. She needs some help at home. He does see a neurologist, Dr Mcdowell at [facility] in [place]. He is having some sundowning at home. She reports that he is very unsteady on his feet. He does ambulate with a walker. He has not had any falls but he has come very close to falling his voice has been getting weaker over the last 3 months but definitely worse over the last month he has been seen by speech pathology in the outpatient environment unfortunately this was happening in [place]. He lives in [place] so this is a very long trip for them. Meds/Allgy Home Medications Ambulatory Orders Medication Instructions Recorded Confirmed atorvastatin 40 mg tablet 40 mg PO QPM 04/07/22 04/10/24 enalapril maleate 20 mg tablet 20 mg PO BID 04/07/22 04/10/24 (Vasotec) metformin 500 mg tablet,extended 1,000 mg PO BID 04/07/22 04/10/24 release 24hr (osmotic) metoprolol succinate 25 mg 25 mg PO BID 04/07/22 04/10/24 tablet,extended release 24 hr tamsulosin 0.4 mg capsule (Flomax) 0.4 mg PO DAILY 04/07/22 04/10/24 ascorbic acid (vitamin C) 1,000 mg 1,000 mg PO DAILY 11/06/23 04/10/24 tablet azelastine 137 mcg (0.1 %) nasal 2 spray NS BID 11/06/23 04/10/24 spray cyanocobalamin (vitamin B-12) 1,000 mcg PO DAILY 11/06/23 04/10/24 1,000 mcg capsule fluticasone 500 mcg-salmeterol 50 1 ea IH BID 11/06/23 04/10/24 mcg/dose blistr powdr for inhalation (Wixela Inhub) fluticasone propionate 50 1 sprays intranasal BID 11/06/23 04/10/24 mcg/actuation nasal spray,suspension niacin 500 mg tablet,extended 500 mg PO DAILY 11/06/23 04/10/24 release 24 hr omega 9-nob-sys-fish oil 1,000 mg 1,000 mg PO DAILY 11/06/23 04/10/24 (120 mg-180 mg) capsule (Fish Oil) pantoprazole 20 mg tablet,delayed 20 mg PO DAILY 11/06/23 04/10/24 release (Protonix) turmeric root extract 500 mg tablet 1,000 mg PO DAILY 11/06/23 04/10/24 albuterol sulfate 2.5 mg/3 mL 2.5 mg inhalation TID PRN 03/20/24 04/10/24 (0.083 %) solution for nebulization shortness of breath or wheezing aspirin 81 mg tablet,delayed 81 mg PO QDAY 03/20/24 04/10/24 release (Adult Low Dose Aspirin) cholecalciferol (vitamin D3) 50 50 mcg PO QDAY 03/20/24 04/10/24 mcg (2,000 unit) capsule carbidopa 25 mg-levodopa 100 mg 1.5 tab PO TID 04/04/24 04/10/24 tablet megestrol 20 mg tablet 20 mg PO TID 30 days #90 tabs 04/08/24 04/10/24 albuterol sulfate 90 mcg/actuation 2 puff inhalation Q4HR PRN 04/10/24 04/10/24 aerosol inhaler (Ventolin HFA) Shortness Of Air/Wheezing magnesium oxide 400 mg (241.3 mg 400 mg PO BID 04/10/24 04/10/24 magnesium) tablet tiotropium bromide 2.5 2 inh inhalation DAILY 04/10/24 04/10/24 mcg/actuation mist for inhalation Allergies Allergies Allergy/AdvReac Type Severity Reaction Status Date / Time doxycycline AdvReac Nausea Verified 04/10/24 21:54 [facility] Medical History Medical History (Updated 04/11/24 @ 08:20 by GABBI Pruitt) Enlarged prostate Acid reflux High cholesterol Chronic diarrhea Asthma Insulin resistance BPH (benign prostatic hyperplasia) HTN (hypertension) GERD with apnea Hyperlipidemia Surgical History Surgical History (Updated 04/10/24 @ 21:56 by Crystal Haley RN) Hx of cholecystectomy Social History Social History Smoking Status: Former smoker Number of Years Smoked: 20 Do you dip or chew tobacco?: No Do you vape?: No Patient requests smoking cessation consult: No Initiate information on smoking cessation: No Living arrangement: At home Marital Status: Living Condition: With spouse/s.o. Relationship: Level: Assisted Home Mobility Equipment: Wheeled walker Do you feel safe in your home environment?: Yes Suffered physical, verbal, emotional, or financial abuse?: No History of Abuse: No ETOH Use: None Substance Use: denies use POLST Patient has POLST: No POLST Status: Full Code (His is his medical decision-maker. He expresses that he wants to remain full code.) Review of Systems Status of ROS: 10 or more systems reviewed and unremarkable except as noted in history and below Constitutional Reports: Fatigue and Weakness; Denies: Fever or Chills Eyes Denies: Blurry vision Ears, nose, mouth, and throat Reports: Dry mouth and Other (Weak voice, Dry mouth, states he has to constantly sip on water); Denies: Ear pain, Nasal discharge, Nasal congestion, Difficulty swallowing or Throat pain Cardiovascular Reports: shortness of breath with exertion and other (Chest tightness with inspiration); Denies: Irregular heart rate Respiratory Reports: Shortness of breath, SOB at rest and SOB with exertion; Denies: Cough Gastrointestinal Reports: Poor appetite; Denies: Abdominal pain or Difficulty swallowing Musculoskeletal Denies: Joint pain Integumentary/Breast Denies: Rash Neurological Reports: General weakness; Denies: Headache Endocrine Reports: Fatigue Hematologic/Lymphatic Reports: Anemia Prior Level of Functionality: Does not drive. His does the driving. Lives with his daughter and grandson as well. Dependent on a walker for ambulation Exam Constitutional appears chronically ill. Loose skin is evident about the upper extremities HENMT normocephalic, oral mucous membranes normal (dry) and oropharynx normal Eyes PERRL and conjunctivae normal Neck/C-Spine visual inspection normal and trachea midline Lymph no lymphadenopathy noted Chest inspection of chest normal and palpation of chest normal Respiratory breath sounds equal bilaterally, normal respiratory effort, clear to auscultation bilaterally, no wheezes, no retractions and no use of accessory muscles Cardiovascular normal heart rate noted Gastrointestinal abdomen soft to palpation, nondistended, no hepatosplenomegaly and no pulsatile mass mild generalized tenderness Extremities normal to inspection, normal to palpation, no tenderness and no joint enlargement Neurology disintegrator operator II-XII intact and GCS 15 resting tremor noted. voice is weak, and fatigues easily in normal conversation Psychiatry mental status grossly normal, oriented x3, thought process normal, cooperative and affect normal Skin no rash Conclusion/Plan Problem List (1) COPD exacerbation: Plan: Presents to the emergency department with oxygen saturation of 88% on room air. Presents via EMS. He is not on home oxygen. His outpatient medication regimen for COPD includes fluticasone/salmeterol inhaler, albuterol nebulizer, and tiotropium inhaler. It seems he has been having some difficulties at home over the last 6 months. He is having decreased appetite which has been refractory to interventions and primary care. Review of nursing notes show that family is requesting resources due to patient requiring more assistance at home. There have been 17 EMS calls since October. For his COPD exacerbation he was given 10 mg of dexamethasone in the emergency department in addition to albuterol nebulizer treatments. His chest x-ray shows no acute cardiopulmonary process. We will treat him with steroids, nebulized albuterol, nebulized steroids, nebulized ipratropium. We we will use supplemental oxygen and attempt to wean. He is currently on 2 L via nasal cannula and maintaining oxygen saturation of 97%. We will ask for physical therapy evaluation as it sounds like there has been some functional decline in the home environment. He designates his as a surrogate decision maker. I have discussed his situation with his . She will come to the hospital tomorrow,and we will complete ACP discussion at that time. (2) Parkinson's disease: Plan: Denies having seen neurology in the past.On further discussion with his he does indeed have a neurologist, Dr. Mcdowell at [facility] in [place]. He last saw that provider less than 3 months ago. Recently switched primary care providers to SHANNA Tomlinson in the [facility] system. He is currently on carbidopa levodopa 25/101.5 tabs 3 times daily. His Parkinson's seems to be progressing with weakening of his voice. He has not had any difficulty swallowing. Please see details above regarding evaluation by [facility]. He is having loss of appetite. He is having sundowning he is waking up during the night and disturbing his spouse's sleep. . I am requesting physical therapy evaluation. This has been completed. Recommendation is for SNF. Qualifiers: Dyskinesia presence: unspecified whether dyskinesia Fluctuating manifestations: unspecified whether manifestations fluctuate Qualified Code(s): G20.A1 - Parkinson's disease without dyskinesia, without mention of fluctuations (3) Weight loss: Plan: I do not have records prior to February 2024. I see a almost 7 kg weight loss in the period from 02/17/24 to 04/11/2024. I am somewhat suspicious of this number as I see recorded weight of 80 kg on 04/10 and a recorded weight of 77 kg on 04/11. In any event this patient does shows physical exam findings for malnutrition. He is on Megace in the outpatient environment. He states that this is not helping. He states that he has no appetite. This was only recently started. He denies any difficulty swallowing he denies any pain with eating. On abdominal exam he does have mild diffuse tenderness without distention. (4) Anemia: Plan: Labs were reviewed. This looks like anemia of chronic disease. I do not see any history of iron studies. I will send iron studies. Laboratory Tests 03/15/24 03/23/24 03/30/24 17:12 18:28 17:39 Hgb 10.9 L 10.9 L 10.9 L 04/08/24 04/10/24 04/11/24 20:10 22:10 07:21 Hgb 10.8 L 10.9 L 11.3 L Qualifiers: Anemia type: unspecified type Qualified Code(s): D64.9 - Anemia, unspecified (5) Hypomagnesemia: Plan: Laboratory Tests 04/04/24 04/08/24 04/09/24 12:02 20:10 12:48 Magnesium 1.4 L 1.5 L 1.7 04/10/24 22:10 Magnesium 1.5 L He has struggled with this in the outpatient environment. Will continue with while he is here. I will wood mag level in the AM. (6) HTN (hypertension): Plan: Enalapril has been hold at home for blood pressure less than 110/70. Selected Entries 04/11/24 02:45 04/11/24 05:00 Blood Pressure 174/99 H 148/91 H Today he has orthostatic hypotension. His blood pressure drops from 149 to 112, lying to standing. Qualifiers: Hypertension type: primary hypertension Qualified Code(s): I10 - Essential (primary) hypertension (7) Hyperbilirubinemia: Plan: He is status postcholecystectomy. He has elevated bilirubin which is persistent over a period of at least 2 weeks. I do not see hepatitis panel. I did not see a transaminitis either. I have requested fractionation of bilirubin. I am considering CT of the abdomen and pelvis given his abdominal tenderness and difficulty with eating. (8) Hyponatremia: Plan: Likely related to poor p.o. intake. I will ensure he is on a regular diet. We will encourage free water restriction but I will allow him to continue to have fluids as he desires. Laboratory Tests 04/08/24 04/10/24 04/11/24 20:10 22:10 07:21 Sodium 134 L 132 L 132 L Plan I have spent 80 minutes in the care of this patient today. This includes time [id number], review and ordering of diagnostic imaging and laboratory studies. Monitoring the patient's signs symptoms, evaluation of medication effectiveness and patient's response to treatment. Lab Results Lab results reviewed: Yes 04/11/24 07:21 04/11/24 07:21 Core Measures Anticipated LOS I expect patient to be DC'd or transferred within 96 hours.: Yes Issues Hospital Issues and Management Plan: COPD exacerbation: steroids, nebulized medications Dementia/PArkinson's: PT eval and continue home meds. DVT/VTE - Prophylaxis VTE/DVT Device ordered at admit?: Yes VTE/DVT Prophylaxis med ordered at admit?: Yes
[2024-04-11] MEDS: CARBIDOPA/LEVODOPA 25 MG/100 MG TABLET PO SCH ×2 (08:28→13:49)
[2024-04-11] MEDS: CYANOCOBALAMIN 500 MCG TABLET PO SCH (08:29)
[2024-04-11] MEDS: lisinopriL 20 MG TABLET PO SCH (08:29)
[2024-04-11] MEDS: MAGNESIUM OXIDE 400 MG TABLET PO SCH (08:29)
[2024-04-11] MEDS: CHOLECALCIFEROL 25 MCG TABLET PO SCH (08:30)
[2024-04-11] MEDS: PANTOPRAZOLE 40 MG TABLET PO SCH (08:30)
[2024-04-11] MEDS: ENOXAPARIN 40 MG/0.4 ML SYRINGE SUBQ SCH (08:31)
[2024-04-11] MEDS: ASPIRIN EC 81 MG TABLET PO SCH (08:31)
[2024-04-11] MEDS: TAMSULOSIN 0.4 MG CAPSULE PO SCH (08:31)
[2024-04-11] MEDS: METOPROLOL SUCCINATE 25 MG TABLET PO SCH (08:31)
[2024-04-11] MEDS: SODIUM CHLORIDE FLUSH 0.9% 10 ML SYRINGE IVP SCH (08:32)
[2024-04-11] MEDS ORDERED: iohexoL-300 100 ML VIAL ONE (11:52)
[2024-04-11] MEDS: [UNRECOGNIZED DRUG - REMARK] TOP SCH (13:31)
[2024-04-11] MEDS: NIACIN 500 MG PO SCH (13:31)
[2024-04-11] MEDS: MEGESTROL 20 MG PO SCH (13:32)
[2024-04-11] MEDS: AZITHROMYCIN 250 MG TABLET PO SCH (13:36)
[2024-04-11] MEDS: iohexoL-300 100 ML VIAL IVP ONE (14:26)
--- NOTE | 2024-04-11 15:12 | CT Report ---
PROCEDURE: CT Abdomen/Pelvis W INDICATIONS: abdominal tenderness, elevated bili, weight loss CONTRAST: 100ml [id number] TECHNIQUE: After the administration of intravenous contrast, a CT scan of the abdomen and pelvis was performed. Images were recorded and evaluated at appropriate window settings. Reformats: coronal and sagittal. F or radiation dose reduction, the following was used: automated exposure control, adjustment of mA and /or kV according to patient size. COMPARISON: None. FINDINGS: Image quality: Diagnostic. Lower chest: Patchy mixed interstitial and alveolar opacities at the right lung base. Mild pulmonary emphysema. Heavy coronary artery and mitral annular calcification. Liver: No solid mass. Gallbladder: Surgically absent. Biliary tree: No intrahepatic or extrahepatic dilation, accounting for a post-cholecystectomy state. Spleen: No splenomegaly. Pancreas: No pancreatic ductal dilation. Adrenals: No adrenal nodule. Kidneys and ureters: Symmetric enhancement. No hydronephrosis or nephrolithiasis. No solid mass or cy st requiring follow-up. Several bilateral cortical cysts, the largest in the right upper pole. No hyd roureter. Stomach, bowel and peritoneum: The proximal stomach is decompressed. The distal stomach is distended and demonstrates signs of stasis. There is circumferential mild wall thickening in the proximal duode num which may be causing gastric outlet obstruction. There is mild circumferential mural enhancement. This is immediately adjacent to the monika hepatis. An partially obscured by cholecystectomy clip art ifact. No other segments of dilated small bowel with wall thickening. There is a large rectal stool ball. Large quantity of solid stool present throughout the colon. No ev idence of extraluminal gas or significant colon wall thickening. Normal appendix. . No pathologic star e fluid. Lymph nodes: No central or retroperitoneal adenopathy. Vessels: Normal caliber abdominal aorta, IVC, and portal vein. Heavy distal abdominal aortic calcifi cation. PELVIS Reproductive organs: Significant prostatomegaly. Bladder: Distended and anteriorly displaced urinary bladder without wall thickening. Pelvic lymph nodes: No pelvic adenopathy by size criteria. Bones: No aggressive osseous abnormality. Other: Tiny bilateral fat-containing inguinal hernias. IMPRESSION: Rectal distention and impaction resulting in prominent colonic obstipation. Possible gastric outlet obstruction with suspicious transition point in the proximal duodenum. Upper endoscopy recommended to exclude neoplasm or peptic ulcer disease. Small amount of airspace disease at the right lung base which may be infectious or inflammatory. Prostatomegaly. Reviewed by: Nancy Nicole MD on 04/11/2024 3:10 PM PST Approved by: Nancy Nicole MD on 04/11/2024 3:10 PM PST Station ID: [id number]
[2024-04-11] MEDS: ATORVASTATIN 40 MG TABLET PO SCH (20:41)
[2024-04-11] MEDS: ACETAMINOPHEN 325 MG TABLET PO PRN (20:41)
[2024-04-12] MEDS ORDERED: SODIUM CHLORIDE 0.9% 1,000 ML ONE (02:54)
[2024-04-12] MEDS: NOREPINEPHRINE/0.9 % NS 8 MG/250 ML BAG IV SCH (03:15)
[2024-04-12 03:41] LABS: HCT - HEMATOCRIT 32.5 % (42.0-52.0); HGB - HEMOGLOBIN 9.6 g/dL (14.0-18.0); MEAN CORPUSCULAR HEMOGLOBIN 24.7 pg (27.0-31.0); MEAN CORPUSCULAR HGB CONC 29.5 g/dL (32.0-36.0); MEAN CORPUSCULAR VOLUME 83.5 fL (80.0-94.0); MEAN PLATELET VOLUME 9.5 fL (7.4-11.4); RED BLOOD COUNT 3.89 10^6/uL (4.70-6.10); RED CELL DISTRIBUTION WIDTH 18.9 % (12.0-15.0); WHITE BLOOD COUNT 9.1 x10^3/uL (4.8-10.8)
[2024-04-12 03:44] LABS: ALBUMIN 3.1 g/dL (3.2-5.5); ALBUMIN/GLOBULIN RATIO 1.6 (1.0-2.2); BILIRUBIN,TOTAL 1.7 mg/dL (0.2-1.0); CALCIUM 8.8 mg/dL (8.5-10.3); CREATININE 0.9 mg/dL (0.6-1.3); POTASSIUM 3.9 mmol/L (3.5-4.5); TOTAL PROTEIN 5.1 g/dL (6.4-8.9)
--- NOTE | 2024-04-12 03:45 | ED Physician Documentation ---
ED Addendum Addendum Addendum: I was called overnight to this patient's room as he coded, as CODE CARON. This was my first interaction with this case. I immediately ensured high-quality CPR, reviewing with staff that patient was reportedly admitted for COPD. We gave 1 mg epinephrine, with initial pulse check showing PEA. I then intubated patient with GlideScope 4 and ETT 7.5, to 23 at lips. We gave 1 amp bicarb, fluids, and confirmed no hypoglycemia on blood sugar. I used bedside ultrasound to confirm bilateral lung slide, no large pericardial effusion. With roughly 9 minutes of CPR, and PEA on pulse check, patient had ROSC. I started NE gtt, which was escalated to 20. I then placed triple lumen in R femoral vein, followed by arterial line in R femoral artery, in NON STERILE fashion. Labs, EKG, CXR being obtained and patient being transferred emergently to ICU, where hospitalist will take over care. On transfer to ICU, patient was not demonstrating volitional activity or awareness yet, with no paralytics or sedatives given. At this juncture, cause for arrest not clear yet. I spoke on phone with hospitalist Dr. Hermosillo at [phone], reviewing updates; staff previously informed him of arrest, and he is taking over care of this patient. I reviewed of labs following code. CBC with no leukocytosis, with anemia, no thrombocytopenia. Chemistry without emergent electrolyte derangements. Lactate elevated to 6.4 in setting of recent arrest. Bilirubin mildly elevated. Other labs pending. My review of chest x-ray shows endotracheal tube in appropriate position, no large pneumothorax bilaterally. EKG showed NSR with probable slight STD (secondary to recent arrest) but no STEMI. I spoke again with Dr. Hermosillo at 0355, discussing my recommendation for a imaging such as CTA chest. ABG has also been ordered. Extensive work up for cause of this patient's arrest would be appropriate in the ICU to determine etiology for arrest. CRITICAL CARE TIME: outside of procedures, I spent 45 minutes assessing, reassessing, resuscitating this patient, speaking with consultants, and interpreting studies and documentation, in the setting of cardiac arrest. NOTE AGAIN CENTRAL AND ARTERIAL LINES ARE NOT STERILE --- PROCEDURE: intubation Consent: emergent. Indication: cardiac arrest. Patient bag mask ventilated during arrest prior to intubation. On first attempt using Glidescope 4 with ETT 7.5, I intubated patient to 23 at the lips. Equal breath sounds present bilaterally. Color change on CO2 monitor. --- PROCEDURE: POCUS heart and lungs Bilateral lung slide present following intubation. No large pericardial effusion. --- PROCEDURE: central line placement with continuous US guidance Procedure emergent. Ultrasound used to identify appropriate site. Area prepped with chlorhexidine. Using NON STERILE technique and continuous US guidance, and Seldinger technique, 8Fr triple lumen line placed on first attempt. 2mL of blood loss. All lines draw and flush. Line secured. --- PROCEDURE: arterial line placement with continuous US guidance Procedure emergent. Using NON STERILE technique and continuous US guidance, I placed arterial line using Arrow kit in R femoral artery on 2nd attempt. 2mL blood loss. Line secured in place. Discharge Plan Discharge Patient Disposition: [facility] DC/Xfer Condition: Stable Clinical Impression: COPD exacerbation Interventions: ED Admission Assessment Last Done: 04/11/24 06:38
--- NOTE | 2024-04-12 03:55 | PROVIDER PROGRESS NOTE ---
Railroad Firer/Fireman Note Railroad Firer/Fireman Note Railroad Firer/Fireman Note: RN paged "Pt admitted for COPD excacerbation. Found pt naked, not breathing in room 0248. Pressed code blue, pt is full code" Patient admitted for COPD exacerbation and was on low nasal cannula support. RN reporting patient was doing well earlier in the night. RN found patient without his O2 and naked and nonresponsive. Code Blue activated. ED proceeded with ACLS and regain ROSC after approx 9 mins. Patient is intubated. Transferring to ICU. ED impression is patient cardiac arrested 2/2 hypoxemic resp failure. A: COPD exacerbation. acute hypoxemic resp failure leading to cardiac arrest s/p ROSC. r/o ACS P:intubated. transfer to ICU. pressors. abx. breathing treatment. ekg. lab workup. echo. consider CTA chest when stable. RN to call family Aamir Beard
[2024-04-12] MEDS: PROPOFOL 1000 MG/100 ML 1,000 MG/100 ML BOTTLE IV SCH (04:05)
[2024-04-12 04:06] LABS: ABG OXYGEN SATURATION 97 % (94-98); ABG PCO2 37 mmHg (34-45); ABG PH 7.43 (7.35-7.45); ABG PO2 87 mmHg (80-100); ABG TCO2 25.1 MMOL/L (21.0-29.0); ALLEN TEST POSITIVE
[2024-04-12 04:07] LABS: ABG MODE OF VENTILATION ASSIST/CONTROL; ABG RESPIRATORY RATE 18 b/min
[2024-04-12 04:13] LABS: TROPONIN I HIGH SENSITIVITY 21.7 ng/L (2.3-19.7)
[2024-04-12] MEDS: fentaNYL 2,500 MCG in SODIUM CHLORIDE 0.9% 200 ML IV SCH (04:23)
[2024-04-12 04:33] LABS: % IRON SATURATION 8 % (20-50); IRON 24 ug/dL (50-212); TOTAL IRON BINDING CAPACITY 315 ug/dL (250-450); TRANSFERRIN 225 mg/dL (203-362)
[2024-04-12] MEDS: SODIUM CHLORIDE 0.9% 1,000 ML IV SCH (04:36)
[2024-04-12] MEDS: CEFEPIME 1 GM in SODIUM CHLORIDE 0.9% MINIBAG 100 ML IV SCH (04:40)
[2024-04-12] MEDS: VANCOMYCIN INJ 1.5 GM in SODIUM CHLORIDE 0.9% 500 ML IV STA (05:20)
[2024-04-12] MEDS: PANTOPRAZOLE 40 MG VIAL IVP SCH (06:51)
--- NOTE | 2024-04-12 07:20 | PROVIDER PROGRESS NOTE ---
Subjective Prog Note Date Prog Note Date: 04/12/24 Prog Note Time: 07:18 Subjective Pt reports feeling: Worse Subjective: Code blue overnight. at 215 was doing well at hourly rounding. last set of VS was WNL at 0005 without increasing O2 requirements, was on 1.5L via NC, had been on 2L all afternoon. no oral intake right before the code, according the the description of the room, he had some confusion immediately before- had taken off his O2 and was found naked. ROSC was obtained within 10 min and he was transferred to ICU on a ventilator. Current Medications Current Medications Current Medications: Current Medications Generic Name Dose Route Start Last Admin Trade Name Freq PRN Reason Stop Dose Admin Acetaminophen 650 mg 04/11/24 05:31 04/11/24 20:41 Acetaminophen 325 Mg Tablet PO 650 mg Q4HR PRN Administration Pain 1 to 4, or Fever Albuterol/Ipratropium 3 ml 04/11/24 05:33 04/11/24 22:04 Ipratropium/Albuterol 3 Ml Neb INH 3 ml Q4HR PRN Administration Wheezing Aspirin 81 mg 04/11/24 09:00 04/11/24 08:31 Aspirin Ec 81 Mg Tablet PO 81 mg DAILY OSMANI Administration Atorvastatin Calcium 40 mg 04/11/24 21:00 04/11/24 20:41 Atorvastatin 40 Mg Tablet PO 40 mg QPM OSMANI Administration Carbidopa/Levodopa 1.5 tab 04/11/24 08:30 04/12/24 06:17 Carbidopa/Levodopa 25 Mg/100 Mg Tablet PO Not Given TID OSMANI Chlorhexidine Gluconate 15 ml 04/12/24 09:00 Chlorhexidine Gluconate 15 Ml Udc PO BID OSMANI Cholecalciferol 50 mcg 04/11/24 09:00 04/11/24 08:30 Cholecalciferol 25 Mcg Tablet PO 50 mcg DAILY OSMANI Administration Cyanocobalamin 1,000 mcg 04/11/24 09:00 04/11/24 08:29 Cyanocobalamin 500 Mcg Tablet PO 1,000 mcg DAILY OSMANI Administration Dexamethasone 6 mg 04/12/24 09:00 Dexamethasone 4 Mg/Ml Vial IVP 04/15/24 09:01 DAILY [facility] Enoxaparin Sodium 40 mg 04/11/24 09:00 04/11/24 08:31 Enoxaparin 40 Mg/0.4 Ml Syringe SUBQ 40 mg DAILY OSMANI Administration Norepinephrine/Sodium Chloride 8 mg in 250 mls @ 15 mls/hr 04/12/24 04:00 04/12/24 06:57 Levophed 8 Mg/250-0.9% Nacl IV 10 mcg/min .[id number] OSMANI 18.75 mls/hr Titration Protocol 8 MCG/MIN Sodium Chloride 1,000 mls @ 75 mls/hr 04/12/24 04:00 04/12/24 04:36 Normal Saline 0.9% IV 75 mls/hr .[id number] OSMANI Administration Propofol 1,000 mg in 100 mls @ 4.62 mls/hr 04/12/24 04:00 04/12/24 06:57 Diprivan IV 20 mcg/kg/min .[id number] OSMANI 9.24 mls/hr Titration Protocol 10 MCG/KG/MIN Cefepime HCl 1 gm/ Sodium 100 mls @ 200 mls/hr 04/12/24 04:00 04/12/24 05:27 Chloride IV Infused Q8H OSMANI Infusion Fentanyl 2,500 mcg/ Sodium 250 mls @ 7.7 mls/hr 04/12/24 04:00 04/12/24 05:37 Chloride IV 2 mcg/kg/hr .[id number] OSMANI 15.4 mls/hr Titration Protocol 1 MCG/KG/HR Vancomycin HCl 1.25 gm/ Sodium 250 mls @ 167 mls/hr 04/13/24 05:00 Chloride IV Q24H OSMANI Magnesium Oxide 400 mg 04/11/24 09:00 04/11/24 20:41 Magnesium Oxide 400 Mg Tablet PO 400 mg BID OSMANI Administration Metoprolol Succinate 25 mg 04/11/24 09:00 04/11/24 20:41 Metoprolol Succinate 25 Mg Tablet PO 25 mg BID OSMANI Administration Pantoprazole Sodium 20 mg 04/11/24 09:00 04/11/24 08:30 Pantoprazole 40 Mg Tablet PO 20 mg DAILY OSMANI Administration Pantoprazole Sodium 40 mg 04/12/24 07:00 04/12/24 06:51 Pantoprazole 40 Mg Vial IVP 40 mg QDAC OSMANI Administration Patient Own Med ( 2 each 04/11/24 09:00 04/12/24 00:18 Azelastine 137 Mcg/0 TOP Not Given .137 Ml [place],Non- BID OSMANI Aerosol) Patient Own Med ( 20 each 04/11/24 14:00 04/12/24 06:17 Megestrol 20 Mg PO Not Given Tablet) TID OSMANI Patient Own Med ( 500 each 04/11/24 09:00 04/11/24 13:31 Niacin 500 Mg Tablet PO Not Given Extended Release 24 DAILY OSMANI Hr) Sodium Chloride 10 ml 04/11/24 05:31 Sodium Chloride Flush 0.9% 10 Ml Syringe IVP PRN PRN NEEDED PER PROVIDER ORDERS Sodium Chloride 10 ml 04/11/24 09:00 04/12/24 04:37 Sodium Chloride Flush 0.9% 10 Ml Syringe IVP 10 ml 0100,0900,1700 OSMANI Administration Tamsulosin HCl 0.4 mg 04/11/24 09:00 04/11/24 08:31 Tamsulosin 0.4 Mg Capsule PO 0.4 mg DAILY OSMANI Administration Objective Vital Signs/Intake & Output Reviewed Vital Signs: Yes Vital Signs: Vital Signs x48h Temp Pulse Pulse Pulse Resp BP BP 04/12/24 07:02 84 04/12/24 06:40 75 18 129/76 04/12/24 06:35 75 18 127/78 04/12/24 06:30 35.9 C L 74 18 127/78 04/12/24 06:25 74 18 142/84 H 04/12/24 06:20 35.8 C L 76 18 130/76 04/12/24 06:15 35.8 C L 83 18 133/82 H 04/12/24 06:10 35.8 C L 76 18 130/72 04/12/24 06:05 35.7 C L 78 18 123/73 04/12/24 06:00 78 131/75 H 04/12/24 05:55 81 125/75 04/12/24 05:50 85 117/72 04/12/24 05:45 76 116/77 04/12/24 05:40 35.6 C L 80 116/78 04/12/24 05:35 35.6 C L 84 127/70 04/12/24 05:30 35.5 C L 88 126/78 04/12/24 05:20 35.4 C L 89 124/75 04/12/24 05:10 35.4 C L 80 126/75 04/12/24 05:00 85 123/71 04/12/24 04:50 80 121/77 04/12/24 04:43 84 116/77 04/12/24 04:32 81 04/12/24 04:00 81 18 109/75 04/12/24 03:49 81 16 122/78 04/12/24 03:43 117/77 04/12/24 03:26 143/90 H 04/12/24 03:18 75/45 L 04/12/24 03:13 54/34 L 04/12/24 03:04 79/42 L 04/12/24 02:48 0 L 0 L 04/12/24 00:05 36.6 C 85 20 108/64 Pulse Ox O2 Flow Rate 04/12/24 07:02 04/12/24 06:40 97 04/12/24 06:35 97 04/12/24 06:30 97 04/12/24 06:25 97 04/12/24 06:20 97 04/12/24 06:15 97 04/12/24 06:10 97 04/12/24 06:05 97 04/12/24 06:00 97 04/12/24 05:55 96 04/12/24 05:50 97 04/12/24 05:45 96 04/12/24 05:40 96 04/12/24 05:35 96 04/12/24 05:30 96 04/12/24 05:20 96 04/12/24 05:10 96 04/12/24 05:00 96 04/12/24 04:50 96 04/12/24 04:43 96 04/12/24 04:32 04/12/24 04:00 98 04/12/24 03:49 98 04/12/24 03:43 04/12/24 03:26 04/12/24 03:18 04/12/24 03:13 04/12/24 03:04 04/12/24 02:48 04/12/24 00:05 98 1.5 Intake & Output: Intake & Output 04/10/24 04/11/24 04/12/24 04/13/24 05:59 05:59 05:59 05:59 Intake Total 1050 / 1050 1054 / 1054 53 / 53 Output Total 425 / 425 Balance 1050 / 1050 629 / 629 Weight (kg) 80.24 kg 77 kg Objective General Appearance: positive Other (intubated and sedated) Eyes Bilateral: positive Normal inspection, PERRL (pupils pinpoint) and Conjunctivae nml ENT: positive ENT inspection nml Neck: positive Nml inspection and Trachea midline Respiratory: positive Breath sounds nml Cardiovascular: positive Regular rate & rhythm Abdomen: positive No distention Skin: positive Color nml Extremities: positive No pedal edema Neurologic/Psychiatric: positive Other (comatose, intubated and sedated) Lab Results 04/12/24 03:05 04/12/24 07:02 Other Labs: Lab Results x24hrs 04/12/24 04/12/24 04/12/24 Range/Units 03:55 03:05 02:55 WBC 9.1 (4.8-10.8) x10^3/uL RBC 3.89 L (4.70-6.10) 10^6/uL Hgb 9.6 L (14.0-18.0) g/dL Hct 32.5 L (42.0-52.0) % MCV 83.5 (80.0-94.0) fL MCH 24.7 L (27.0-31.0) pg MCHC 29.5 L (32.0-36.0) g/dL RDW 18.9 H (12.0-15.0) % Plt Count 303 (130-450) 10^3/uL MPV 9.5 (7.4-11.4) fL Neut # (Auto) (1.5-6.6) 10^3/uL Lymph # (Auto) (1.5-3.5) 10^3/uL [place] # (Auto) (0.0-1.0) 10^3/uL Eos # (Auto) (0.0-0.7) 10^3/uL Baso # (Auto) (0.0-0.1) 10^3/uL Absolute Nucleated RBC x10^3/uL Nucleated RBC % /100WBC Bld Gas Analysis Time 0404 Sample Site LEFT RADIAL ABG pH 7.43 (7.35-7.45) ABG pCO2 37 (34-45) mmHg ABG pO2 87 (80-100) mmHg ABG HCO3 24.0 (22.0-26.0) mmol/L ABG Total CO2 25.1 (21.0-29.0) MMOL/L ABG O2 Saturation 97 (94-98) % ABG Base Excess 0.0 (-2.0-3.0) mmol/L Leonides Test POSITIVE Respiration Rate 18 b/min O2 Delivery Device VENTILATOR Vent Mode ASSIST/CONTROL FiO2 40.00 Tidal Volume 550 mL PEEP 5 cmH2O Sodium 134 L (135-145) mmol/L Potassium 3.9 (3.5-4.5) mmol/L Chloride 96 L (101-111) mmol/L Carbon Dioxide 27 (21-32) mmol/L Anion Gap 11.0 (6-13) BUN 22 H (6-20) mg/dL Creatinine 0.9 (0.6-1.3) mg/dL Estimated GFR (MDRD) 81 L (>89) Glucose 224 H (74-104) mg/dL POC Whole Bld Glucose 163 (70-100) mg/dL Lactic Acid 6.4 H* (0.5-2.2) mmol/L Calcium 8.8 (8.5-10.3) mg/dL Iron 24 L (50-212) ug/dL TIBC 315 (250-450) ug/dL % Saturation 8 L (20-50) % Transferrin 225 (203-362) mg/dL Total Bilirubin 1.7 H (0.2-1.0) mg/dL Direct Bilirubin (0.03-0.18) mg/dL AST 40 (10-42) IU/L ALT 12 (10-60) IU/L Alkaline Phosphatase 63 (42-121) IU/L Troponin I High Sens 21.7 H* (2.3-19.7) ng/L B-Natriuretic Peptide 310 H (5-100) pg/mL Total Protein 5.1 L (6.4-8.9) g/dL Albumin 3.1 L (3.2-5.5) g/dL Globulin 2.0 L (2.1-4.2) g/dL Albumin/Globulin Ratio 1.6 (1.0-2.2) 04/11/24 Range/Units 07:21 WBC 10.9 H (4.8-10.8) x10^3/uL RBC 4.48 L (4.70-6.10) 10^6/uL Hgb 11.3 L (14.0-18.0) g/dL Hct 36.1 L (42.0-52.0) % MCV 80.6 (80.0-94.0) fL MCH 25.2 L (27.0-31.0) pg MCHC 31.3 L (32.0-36.0) g/dL RDW 18.6 H (12.0-15.0) % Plt Count 319 (130-450) 10^3/uL MPV 9.1 (7.4-11.4) fL Neut # (Auto) 10.7 H (1.5-6.6) 10^3/uL Lymph # (Auto) 0.1 L (1.5-3.5) 10^3/uL [place] # (Auto) 0.1 (0.0-1.0) 10^3/uL Eos # (Auto) 0.0 (0.0-0.7) 10^3/uL Baso # (Auto) 0.0 (0.0-0.1) 10^3/uL Absolute Nucleated RBC 0.00 x10^3/uL Nucleated RBC % 0.0 /100WBC Bld Gas Analysis Time Sample Site ABG pH (7.35-7.45) ABG pCO2 (34-45) mmHg ABG pO2 (80-100) mmHg ABG HCO3 (22.0-26.0) mmol/L ABG Total CO2 (21.0-29.0) MMOL/L ABG O2 Saturation (94-98) % ABG Base Excess (-2.0-3.0) mmol/L Leonides Test Respiration Rate b/min O2 Delivery Device Vent Mode FiO2 Tidal Volume mL PEEP cmH2O Sodium 132 L (135-145) mmol/L Potassium 3.8 (3.5-4.5) mmol/L Chloride 95 L (101-111) mmol/L Carbon Dioxide 30 (21-32) mmol/L Anion Gap 7.0 (6-13) BUN 19 (6-20) mg/dL Creatinine 0.7 (0.6-1.3) mg/dL Estimated GFR (MDRD) 109 (>89) Glucose 159 H (74-104) mg/dL POC Whole Bld Glucose (70-100) mg/dL Lactic Acid (0.5-2.2) mmol/L Calcium 9.3 (8.5-10.3) mg/dL Iron (50-212) ug/dL TIBC (250-450) ug/dL % Saturation (20-50) % Transferrin (203-362) mg/dL Total Bilirubin 2.4 H (0.2-1.0) mg/dL Direct Bilirubin 0.48 H (0.03-0.18) mg/dL AST 18 (10-42) IU/L ALT 12 (10-60) IU/L Alkaline Phosphatase 69 (42-121) IU/L Troponin I High Sens (2.3-19.7) ng/L B-Natriuretic Peptide (5-100) pg/mL Total Protein 6.4 (6.4-8.9) g/dL Albumin 3.9 (3.2-5.5) g/dL Globulin 2.5 (2.1-4.2) g/dL Albumin/Globulin Ratio 1.6 (1.0-2.2) Assessment/Plan Problem List (1) Cardiac arrest: Impression: Patient with sudden onset cardiac arrest. There was no prodrome, no changes in vital signs, no agitation that was seen in the period preceeding. Gavino stapleton was called and ROSC was obtained within 10 min. CPR was started immediately. Unclear what precipitating factor was. I do not think that this cardiac arrest is secondary to respiratory arrest. there was not decline in respiratory status. there is not evidence of aspiration prior to the event. I think this could have been due to some sort of a vagal response. His ABG was completely WNL that was done post code. His lactate was elevated, but returned to normal by this AM. CT A/P was done yesterday: Gastric outlet obstruction, which could have been contributory to his weight loss, as well as severe constipation. nothing that would have contributed to his cardiac arrest. Echo ordered yesterday and completed this AM. Read is pending. Discussion with spouse and family this AM. Mora, spouse, and I had planned to meet with Leeroy today and discuss his code status, He had related to me yesterday that he wanted to be "full code". My discussion with Mora yesterday afternoon indicated that he was experiencing significant functional decline and loss of QOL. further discussion this AM makes it clear that we should proceed quickly to comfort care measures and extubate this patient. Patent was extubated palliatively and comfort care measures were instituted. I have been at the bedside multiple times over the course of the day to insure that patient and family are receiving what is needed for his comfort. He is hypotensive, and appears comfortable. It appears that is imminent. Lines placed under unsterile condtions have been removed. (2) COPD exacerbation: Impression: Treated with Azithromycin, nebs and steroids. treatment discontinued. he is on oxygen for comfort. (3) Parkinson's disease: Impression: meds discontinued. Qualifiers: Dyskinesia presence: unspecified whether dyskinesia Fluctuating manifestations: unspecified whether manifestations fluctuate Qualified Code(s): G20.A1 - Parkinson's disease without dyskinesia, without mention of fluctuations (4) Weight loss: Impression: discussion with and family today. he has had about a 60# weight loss over the last year. Chest CT done this summer showed spiculated nodule. PET scan was positive. Tissue dx was not pursued as it was clear that he would not withstand treatment for lung cancer. This information was not available to me before today. (5) Anemia: Impression: no clinical significance Qualifiers: Anemia type: unspecified type Qualified Code(s): D64.9 - Anemia, unspecified (6) Hypomagnesemia: Impression: no clinical significance. (7) HTN (hypertension): Impression: no clinical significance Qualifiers: Hypertension type: primary hypertension Qualified Code(s): I10 - Essential (primary) hypertension (8) Hyperbilirubinemia: Impression: no clinical significance (9) Hyponatremia: Impression: no clinical significance I have spent 90 minutes in the care of this patient today. This includes time [id number], review of diagnostic imaging Monitoring the patient's signs symptoms, evaluation of medication effectiveness and patient's response to treatment. Decision was made today to progress to comfort care. he is hypotensive and is imminent.
[2024-04-12 07:33] LABS: ALBUMIN 3.2 g/dL (3.2-5.5); ALBUMIN/GLOBULIN RATIO 1.5 (1.0-2.2); BILIRUBIN,TOTAL 2.1 mg/dL (0.2-1.0); CALCIUM 8.7 mg/dL (8.5-10.3); CREATININE 0.8 mg/dL (0.6-1.3); TOTAL PROTEIN 5.3 g/dL (6.4-8.9)
[2024-04-12] MEDS ORDERED: HALOPERIDOL 5 MG/ML VIAL IVP PRN (08:15)
[2024-04-12] MEDS ORDERED: GLYCOPYRROLATE 1 MG/5 ML VIAL SUBQ PRN (08:15)
[2024-04-12] MEDS ORDERED: METOCLOPRAMIDE 10 MG/2 ML VIAL IVP PRN (08:15)
--- NOTE | 2024-04-12 08:54 | PHARMACY PROGRESS NOTE ---
Best Possible Medication History Admit Date and Time: 04/12/24 0323 Home Medications Medication Instructions Recorded Confirmed Type atorvastatin 40 mg tablet 40 mg PO QPM 04/07/22 04/10/24 History enalapril maleate 20 mg tablet 20 mg PO BID 04/07/22 04/10/24 History (Vasotec) metformin 500 mg tablet,extended 1,000 mg PO BID 04/07/22 04/10/24 History release 24hr (osmotic) metoprolol succinate 25 mg 25 mg PO BID 04/07/22 04/10/24 History tablet,extended release 24 hr tamsulosin 0.4 mg capsule (Flomax) 0.4 mg PO DAILY 04/07/22 04/10/24 History ascorbic acid (vitamin C) 1,000 mg 1,000 mg PO DAILY 11/06/23 04/10/24 History tablet azelastine 137 mcg (0.1 %) nasal 2 spray NS BID 11/06/23 04/10/24 History spray cyanocobalamin (vitamin B-12) 1,000 mcg PO DAILY 11/06/23 04/10/24 History 1,000 mcg capsule fluticasone 500 mcg-salmeterol 50 1 ea IH BID 11/06/23 04/10/24 History mcg/dose blistr powdr for inhalation (Wixela Inhub) fluticasone propionate 50 1 sprays intranasal BID 11/06/23 04/10/24 History mcg/actuation nasal spray,suspension niacin 500 mg tablet,extended 500 mg PO DAILY 11/06/23 04/10/24 History release 24 hr omega [id number]-fish oil 1,000 mg 1,000 mg PO DAILY 11/06/23 04/10/24 History (120 mg-180 mg) capsule (Fish Oil) pantoprazole 20 mg tablet,delayed 20 mg PO DAILY 11/06/23 04/10/24 History release (Protonix) turmeric root extract 500 mg tablet 1,000 mg PO DAILY 11/06/23 04/10/24 History albuterol sulfate 2.5 mg/3 mL 2.5 mg inhalation TID PRN 03/20/24 04/10/24 History (0.083 %) solution for nebulization shortness of breath or wheezing aspirin 81 mg tablet,delayed 81 mg PO QDAY 03/20/24 04/10/24 History release (Adult Low Dose Aspirin) cholecalciferol (vitamin D3) 50 50 mcg PO QDAY 03/20/24 04/10/24 History mcg (2,000 unit) capsule carbidopa 25 mg-levodopa 100 mg 1.5 tab PO TID 04/04/24 04/10/24 History tablet megestrol 20 mg tablet 20 mg PO TID 30 days #90 tabs 04/08/24 04/10/24 Rx albuterol sulfate 90 mcg/actuation 2 puff inhalation Q4HR PRN 04/10/24 04/10/24 History aerosol inhaler (Ventolin HFA) Shortness Of Air/Wheezing magnesium oxide 400 mg (241.3 mg 400 mg PO BID 04/10/24 04/10/24 History magnesium) tablet tiotropium bromide 2.5 2 inh inhalation DAILY 04/10/24 04/10/24 History mcg/actuation mist for inhalation Processed by: Nursing Medications reviewed in ED?: Yes Medication History completed: Yes Patient Interview: Pt unable to participate [facility] Statement: As the person ultimately responsible for medication therapy, providers are able to order a medication from an existing home medication list in [facility] via the "Reconcile Routine" prior to Confirmation of that medication by sales support specialist. Such practice is discouraged except when the physician, in their clinical judgment, deems that a medical need exists for a medication without regard to previous use.
--- NOTE | 2024-04-12 08:57 | XRAY Report ---
PROCEDURE: XR Chest for Line Placement INDICATIONS: Line placement TECHNIQUE: One view of the chest was acquired. COMPARISON: 04/10/2024 FINDINGS: Surgical changes and devices: Endotracheal tube in place with tip projecting approximately 5 cm abov e the bessie. Lungs and pleura: No pleural effusions or pneumothorax. Right basilar atelectasis/infiltrate. Elevat ion of the right hemidiaphragm. Mediastinum: Mediastinal contours appear normal. Heart size is normal. Bones and chest wall: No suspicious bony lesions. Overlying soft tissues appear unremarkable. IMPRESSION: 1.Endotracheal tube with tip projecting approximately 5 cm above the bessie. 2.Elevation of the right hemidiaphragm with right basilar atelectasis versus infiltrate. Findings are concordant with preliminary interpretation provided by [facility]. Reviewed by: Phill Barron MD on 04/12/2024 8:56 AM PST Approved by: Phill Barron MD on 04/12/2024 8:56 AM PST Station ID: [id number]
[2024-04-12] MEDS: CHLORHEXIDINE GLUCONATE 15 ML UDC PO SCH (09:09)
[2024-04-12] MEDS: DEXAMETHASONE 4 MG/ML VIAL IVP SCH (09:10)
[2024-04-12] MEDS: LORazepam 2 MG/ML VIAL IVP PRN (10:17)
[2024-04-12] MEDS: MORPHINE 2 MG/ML CARPUJECT IVP PRN (12:00)
[2024-04-12] MEDS: MIDAZOLAM DRIP 50 MG/50 ML 50 MG/50 ML BAG IV SCH (13:08)
[2024-04-12] MEDS ORDERED: LORazepam 2 MG/ML VIAL IVP PRN (18:43)
[2024-04-12] MEDS: MORPHINE INJ 100 MG in SODIUM CHLORIDE 0.9% 100ML 90 ML IV SCH (20:00)
[2024-04-12 20:06] VITALS: O2SAT 96
--- NOTE | 2024-04-12 22:02 | PROVIDER PROGRESS NOTE ---
Surface Supply Breathing Apparatus Note [employer] Breathing Apparatus Note [employer] Breathing [employer]ar[employer] Note: RN paged " FYI! Patient was transferred to the [facility] floor at 1935, DX of COPD, and Hypoxia with exertion. The staff called a code blue on him in at 340, then was intubated. The family and the DOUPER had a discussion and the family then decided to place him on Comfort care. He wasextubated at 0800 and at 2058, patient in the presence of the family members." Aamir Beard
[2024-04-13] MEDS ORDERED: VANCOMYCIN INJ 1.25 GM in SODIUM CHLORIDE 0.9% 250 ML IV SCH (05:00)
--- NOTE | 2024-04-13 08:40 | Discharge Summary ---
Discharge Summary Admit Date: 04/11/24 Discharge Date: 04/12/24 Discharging Provider: Laura Rodriguez PA-C Primary Care Provider: MONICA Cuellar DIAGNOSES Discharge Diagnoses with Status of Each Condition: Time of 2058 Cardiac arrest COPD exacerbation Weight loss Spiculated lung nodule Positive blood cultures Anemia Hypomagnesemia Hyperbilirubinemia Hyponatremia HPI History of Present Illness: Presents to the emergency department last evening with generalized weakness and difficulty breathing. Patient has been seen in the emergency department twice this week. He has a history of Parkinson's disease, COPD hypomagnesemia hyperlipidemia hypertension BPH and anemia. He has been struggling with weakness and anorexia over the past 6 months. He is unable to tell me how long he has had his diagnosis of Parkinson's disease. He denies seeing neurology. Further discussion with his this afternoon. She is experiencing caregiver fatigue. She needs some help at home. He does see a neurologist, Dr Mcdowell at [facility] in [place]. He is having some sundowning at home. She reports that he is very unsteady on his feet. He does ambulate with a walker. He has not had any falls but he has come very close to falling his voice has been getting weaker over the last 3 months but definitely worse over the last month he has been seen by speech pathology in the outpatient environment unfortunately this was happening in [place]. He lives in [place] so this is a very long trip for them. CONSULTS | PROCEDURES Procedures: Echo, 04/12: Read is pending at the time of this dictation Chest x-ray 04/10 no acute cardiopulmonary process Chest x-ray 04/12 endotracheal tube 5 cm above the bessie Elevation of the right hemidiaphragm with right basilar atelectasis versus infiltrate CT abdomen and pelvis 04/11: Rectal distention and impaction resulting in obstipation Gastric outlet obstruction with transition point in the proximal duodenum upper endoscopy recommended Small amount of airspace disease at the right lung base which may be infectious or inflammatory Prostatic megaly HOSPITAL COURSE Hospital Course: (1) Cardiac arrest: Impression: Patient with sudden onset cardiac arrest. There was no prodrome, no changes in vital signs, no agitation that was seen in the period preceeding. Code blue was called and ROSC was obtained within 10 min. CPR was started immediately. Unclear what precipitating factor was. I do not think that this cardiac arrest is secondary to respiratory arrest. there was not decline in respiratory status. there is not evidence of aspiration prior to the event. I think this could have been due to some sort of a vagal response. His ABG was completely WNL that was done post code. His lactate was elevated, but returned to normal by several hours post code. CT A/P was done HD#1: Gastric outlet obstruction, which could have been contributory to his weight loss, as well as severe constipation. nothing that would have contributed to his cardiac arrest. Echo ordered HD#1 and completed post arrest. Read is pending. Discussion with spouse and family AM HD #2. Mora, spouse, and I had planned to meet with Leeroy on HD #2 and discuss his code status, He had related to me on date of admit that he wanted to be "full code". My discussion with Mora PM HD #1 indicated that he was experiencing significant functional decline and loss of QOL. further discussion post code makes it clear that we should proceed quickly to comfort care measures and extubate this patient. Patent was extubated palliatively and comfort care measures were instituted. He passed approximately 12 hours post extubation. Lines placed under unsterile condtions were removed post extubation. (2) COPD exacerbation: Impression: Treated with Azithromycin, nebs and steroids. treatment discontinued. he is on oxygen for comfort. (3) Parkinson's disease: Impression: meds discontinued. Qualifiers: Dyskinesia presence: unspecified whether dyskinesia Fluctuating manifestations: unspecified whether manifestations fluctuate Qualified Code(s): G20.A1 - Parkinson's disease without dyskinesia, without mention of fluctuations (4) Weight loss: Impression: discussion with and family. he has had about a 60# weight loss over the last year. Chest CT done this summer showed spiculated nodule. PET scan was positive. Tissue dx was not pursued as it was clear that he would not withstand treatment for lung cancer. This information was not available to me prior to discussion of his code status at the time of admission. (5)Positive Blood cultures. There was mild elevation of the white blood cell count on hospital day 2-10.9. This is 0.1 above normal. On hospital day 2 his white count normalized once again. He did not run any fevers or show other signs of sepsis. Blood cultures were returned postmortem, PCR is positive for coagulase-negative staph that is other than staph epidermidis or S lugdunensis. This was drawn from the central line which was placed under nonsterile conditions. The central line was removed after extubation. I do not believe the positive blood cultures are contributory to the patient's . (6) Anemia: Impression: no clinical significance Qualifiers: Anemia type: unspecified type Qualified Code(s): D64.9 - Anemia, unspecified (7) Hypomagnesemia: Impression: no clinical significance. (8) HTN (hypertension): Impression: no clinical significance Qualifiers: Hypertension type: primary hypertension Qualified Code(s): I10 - Essential (primary) hypertension (9) Hyperbilirubinemia: Impression: no clinical significance (10) Hyponatremia: Impression: no clinical significance ALLERGIES Allergies Allergy/AdvReac Type Severity Reaction Status Date / Time doxycycline AdvReac Nausea Verified 04/10/24 21:54 MEDICATIONS Ambulatory Orders Medication Instructions Recorded Confirmed atorvastatin 40 mg tablet 40 mg PO QPM 04/07/22 04/10/24 enalapril maleate 20 mg tablet 20 mg PO BID 04/07/22 04/10/24 (Vasotec) metformin 500 mg tablet,extended 1,000 mg PO BID 04/07/22 04/10/24 release 24hr (osmotic) metoprolol succinate 25 mg 25 mg PO BID 04/07/22 04/10/24 tablet,extended release 24 hr tamsulosin 0.4 mg capsule (Flomax) 0.4 mg PO DAILY 04/07/22 04/10/24 ascorbic acid (vitamin C) 1,000 mg 1,000 mg PO DAILY 11/06/23 04/10/24 tablet azelastine 137 mcg (0.1 %) nasal 2 spray NS BID 11/06/23 04/10/24 spray cyanocobalamin (vitamin B-12) 1,000 mcg PO DAILY 11/06/23 04/10/24 1,000 mcg capsule fluticasone 500 mcg-salmeterol 50 1 ea IH BID 11/06/23 04/10/24 mcg/dose blistr powdr for inhalation (Wixela Inhub) fluticasone propionate 50 1 sprays intranasal BID 11/06/23 04/10/24 mcg/actuation nasal spray,suspension niacin 500 mg tablet,extended 500 mg PO DAILY 11/06/23 04/10/24 release 24 hr omega [id number]-[id number]-fish oil 1,000 mg 1,000 mg PO DAILY 11/06/23 04/10/24 (120 mg-180 mg) capsule (Fish Oil) pantoprazole 20 mg tablet,delayed 20 mg PO DAILY 11/06/23 04/10/24 release (Protonix) turmeric root extract 500 mg tablet 1,000 mg PO DAILY 11/06/23 04/10/24 albuterol sulfate 2.5 mg/3 mL 2.5 mg inhalation TID PRN 03/20/24 04/10/24 (0.083 %) solution for nebulization shortness of breath or wheezing aspirin 81 mg tablet,delayed 81 mg PO QDAY 03/20/24 04/10/24 release (Adult Low Dose Aspirin) cholecalciferol (vitamin D3) 50 50 mcg PO QDAY 03/20/24 04/10/24 mcg (2,000 unit) capsule carbidopa 25 mg-levodopa 100 mg 1.5 tab PO TID 04/04/24 04/10/24 tablet megestrol 20 mg tablet 20 mg PO TID 30 days #90 tabs 04/08/24 04/10/24 albuterol sulfate 90 mcg/actuation 2 puff inhalation Q4HR PRN 04/10/24 04/10/24 aerosol inhaler (Ventolin HFA) Shortness Of Air/Wheezing magnesium oxide 400 mg (241.3 mg 400 mg PO BID 04/10/24 04/10/24 magnesium) tablet tiotropium bromide 2.5 2 inh inhalation DAILY 04/10/24 04/10/24 mcg/actuation mist for inhalation PHYSICAL EXAM AT DISCHARGE Physical Exam Other/Comments: 2058: Patient with absence of pulse, breathing, pupils fixed and dilated. per RN LABS 04/12/24 03:05 04/12/24 07:02 TIME SPENT Time Spent in Discharge (Minutes): 45 Discharge Plan Discharge Patient Disposition: 20 Print Language: Bahamian Date/Time: 04/12/24 20:59
== END 2024-04-12 20:59 | disposition expired | DRG 191 ==
LOC: MS2 21:16 → ED 21:16 → MS2 04-11 06:38
PROVIDERS: ADMIT Student in an Organized Health Care Education/Training Program; ATTEND Internal Medicine
DX: E80.6 Other disorders of bilirubin metabolism; D64.9 Anemia, unspecified; Z90.49 Acquired absence of other specified parts of digestive tract; R91.1 Solitary pulmonary nodule; N40.0 Benign prostatic hyperplasia without lower urinary tract symptoms; Z68.23 Body mass index [BMI] 23.0-23.9, adult; Z79.82 Long term (current) use of aspirin; I46.9 Cardiac arrest, cause unspecified; Z20.818 Contact with and (suspected) exposure to other bacterial communicable diseases; R63.4 Abnormal weight loss; Z79.84 Long term (current) use of oral hypoglycemic drugs; J44.1 Chronic obstructive pulmonary disease with (acute) exacerbation; Z20.828 Contact with and (suspected) exposure to other viral communicable diseases; E83.42 Hypomagnesemia; R26.81 Unsteadiness on feet; R63.0 Anorexia; R53.1 Weakness; E78.00 Pure hypercholesterolemia, unspecified; Z87.891 Personal history of nicotine dependence; E87.1 Hypo-osmolality and hyponatremia; G20.A1 Parkinson's disease without dyskinesia, without mention of fluctuations; F05 Delirium due to known physiological condition; Z20.822 Contact with and (suspected) exposure to COVID-19; Z79.899 Other long term (current) drug therapy; I10 Essential (primary) hypertension; D72.829 Elevated white blood cell count, unspecified; Z51.5 Encounter for palliative care